=== PATIENT | male | born 1990 | race African-American/Black ===

== ENCOUNTER 2016-10-09 16:37 | Emergency (ER) | payer SELFPAY ==
[2016-10-09] MEDS ORDERED: NORMAL SALINE 1000 ML 1,000 ML IV PRN (17:20)
[2016-10-09] MEDS ORDERED: DIPHENHYDRAMINE HCL 50 MG/ML VIAL IV ONE (17:20)
[2016-10-09] MEDS ORDERED: METOCLOPRAMIDE HCL INJ/PF 10 MG/2 ML SDV IV ONE (17:20)
--- NOTE | 2016-10-09 17:23 | ER Document Report ---
ED Medical Screen (RME) - General Chief Complaint: Abdominal Pain Stated Complaint: ABDOMINAL PAIN Time Seen by Provider: 10/09/16 17:20 Mode of Arrival: Ambulatory Information source: Patient Notes: 25-year-old man who presents with nausea, vomiting and upper abdominal pain. Patient states that the symptoms started this morning. He denies blood in the vomitus or black, tarry stools. Past medical history: None Allergies: None Past surgical history: Back surgery 1 month ago TRAVEL OUTSIDE OF THE [place] IN LAST 30 DAYS: No - Related Data Allergies/Adverse Reactions: No Known Allergies Allergy (Verified 10/09/16 16:47) Past Medical History Renal/ Medical History: Denies: Hx Peritoneal Dialysis Physical Exam - Vital signs Vitals: Temp Pulse Resp BP Pulse Ox 98.3 F 76 14 146/81 H 96 10/09/16 16:47 10/09/16 16:47 10/09/16 16:47 10/09/16 16:47 10/09/16 16:47 Course - Vital Signs Vital signs: Temp Pulse Resp BP Pulse Ox 98.3 F 76 14 146/81 H 96 10/09/16 16:47 10/09/16 16:47 10/09/16 16:47 10/09/16 16:47 10/09/16 16:47
[2016-10-09] MEDS ORDERED: MAG HYDROX/AL HYDROX/SIMETH SUSP 30 ML UDCUP PO ONE (18:22)
--- NOTE | 2016-10-09 18:34 | RADIOLOGY REPORT (SQ) ---
EXAM DESCRIPTION: U/S ABDOMEN LIMITED W/O DOP COMPLETED DATE/TIME: 10/09/2016 6:20 pm REASON FOR STUDY: upper abdominal pain COMPARISON: None. TECHNIQUE: Dynamic and static grayscale images acquired of the abdomen and recorded on PACS. Additio nal selected color Doppler and spectral images recorded. LIMITATIONS: None. FINDINGS: PANCREAS: No masses. Visualized pancreatic duct normal caliber. LIVER: No masses. Echotexture normal. LIVER VASCULATURE: Normal directional flow of the main portal vein and hepatic veins. GALLBLADDER: No stones. Normal wall thickness. No pericholecystic fluid. ULTRASOUND-DETECTED REYES'S SIGN: Negative. INTRAHEPATIC DUCTS AND COMMON DUCT: CBD and intrahepatic ducts normal caliber. No filling defects. INFERIOR VENA CAVA: Normal flow. AORTA: No aneurysm. RIGHT KIDNEY: Normal size. Normal echogenicity. No solid or suspicious masses. No hydronephrosis. No calcifications. PERITONEAL AND RIGHT PLEURAL SPACE: No ascites or effusions. OTHER: No other significant findings. IMPRESSION: NORMAL RIGHT UPPER QUADRANT ULTRASOUND. TECHNICAL DOCUMENTATION: JOB ID: [id number] [employer]- All Rights Reserved
--- NOTE | 2016-10-09 18:40 | ER Document Report ---
ED General - General Chief Complaint: Abdominal Pain Stated Complaint: ABDOMINAL PAIN Time Seen by Provider: 10/09/16 17:20 Mode of Arrival: Ambulatory Notes: 25-year-old male with a history of gastritis presents with 1 day of upper abdominal pain burning radiating to the throat "like something is trying to crawl up out of me." Associated with nausea and vomiting. Not a heavy drinker does not take NSAIDs. Does not take acid suppression. He states that he did take a Midol, but that did not help. Shortness of breath or pleuritic component , hematemesis. No diarrhea. No foreign travel. TRAVEL OUTSIDE OF THE [place] IN LAST 30 DAYS: No - Related Data Allergies/Adverse Reactions: No Known Allergies Allergy (Verified 10/09/16 16:47) Past Medical History - General Information source: Patient - Alcohol use. Infrequent. - Social History Smoking Status: Current Every Day Smoker Family History: None Patient has suicidal ideation: No Patient has homicidal ideation: No Renal/ Medical History: Denies: Hx Peritoneal Dialysis Review of Systems - Review of Systems Notes: REVIEW OF SYSTEMS GEN: Denies fever, chills, weight loss ENT: Denies sore throat, nasal discharge, ear pain EYES: Denies blurry vision, eye pain, discharge CV: Denies chest pain, palpitations, edema RESP: Denies cough, shortness of breath, wheezing GI: Abdominal pain and nausea MSK: Denies joint pain/swelling, edema, SKIN: Denies rash, skin lesions LYMPH: Denies swollen glands/lymph nodes NEURO: Denies headache, focal weakness or numbness, dizziness PSYCH: Denies depression, suicidal or homicidal ideation PHYSICAL EXAMINATION General: No acute distress, well-nourished Head: Atraumatic, normocephalic ENT: Mouth normal, oropharynx moist, no exudates or tonsillar enlargement Eyes: Conjunctiva normal, pupils equal, lids normal Neck: No JVD, supple, no guarding CVS: Normal rate, regular rhythm, no murmurs Resp: No resp distress, equal and normal breath sounds bilaterally GI: Nondistended, soft, no tenderness to palpation, no rebound or guarding Ext: No deformities, no edema, normal range of motion in upper and lower ext Back: No CVA or midline TTP Skin: No rash, warm Lymphatic: No lymphadeopathy noted Neuro: Awake, alert. Face symmetric. GCS 15. Physical Exam - Vital signs Vitals: Temp Pulse Resp BP Pulse Ox 98.3 F 76 14 146/81 H 96 10/09/16 16:47 10/09/16 16:47 10/09/16 16:47 10/09/16 16:47 10/09/16 16:47 Course - Re-evaluation Re-evalutation: 10/09/16 18:39 Otherwise healthy 25-year-old male history of gastritis presents with upper abdominal pain signs and symptoms concerning for gastroesophageal reflux versus gastritis. Low suspicion for hepatic or pancreatic disease. Abdominal exam is benign. Vital signs are normal. He already received an ultrasound and labs were ordered before my evaluation. Will rule out gallstones and treat for GERD. Do not think this is any severe abdominal emergency requiring CT at this time given his lack of fever and lack of abdominal tenderness. 10/09/16 19:15 Improved, ultrasound and labs normal. Discharge with proton pump inhibitor. Insert my discharge I have discussed with the patient there likely diagnosis, aftercare plan, follow-up plans and my usual and customary return precautions. They verbalized understanding of this. - Vital Signs Vital signs: Temp Pulse Resp BP Pulse Ox 98.3 F 76 14 146/81 H 96 10/09/16 16:47 10/09/16 16:47 10/09/16 18:40 10/09/16 16:47 10/09/16 16:47 - Laboratory Result Diagrams: 10/09/16 18:40 10/09/16 18:40 Laboratory results interpreted by me: 10/09/16 18:40 MCV 100 H - Diagnostic Test Radiology reviewed: Image reviewed, Reports reviewed Discharge - Discharge Clinical Impression: Gastritis Qualifiers: Gastritis type: unspecified gastritis Chronicity: acute Gastritis bleeding: without bleeding Qualified Code(s): K29.00 - Acute gastritis without bleeding Condition: Good Disposition: HOME, SELF-CARE Instructions: Abdominal Pain ([facility]) Additional Instructions: Abdominal pain is likely caused by a highly acidic environment in your stomach, skull gastritis plus gastroesophageal reflux. Please avoid fatty foods spicy food alcohol and anti-inflammatory drugs like ibuprofen Motrin naproxen and Aleve. Please take medicine I am prescribing you in follow-up with your primary care doctor in 3 days. Please return to the ER if you vomit blood have dark tarry stools or have bright red blood from her bottom. Prescriptions: Pantoprazole Sodium [Protonix] 40 mg PO BID #60 tablet.
[2016-10-09 18:50] LABS: ABSOLUTE BASOPHILS # (AUTO) 0.1 10^3/uL (0.0-0.2); ABSOLUTE LYMPHOCYTES (AUTO) 1.7 10^3/uL (0.5-4.7); ABSOLUTE MONOCYTES (AUTO) 0.6 10^3/uL (0.1-1.4); ABSOLUTE NEUT (AUTO) 2.4 10^3/uL (1.7-8.2); BASOPHILS % (AUTO) 1.1 % (0-2); EOSINOPHILS % (AUTO) 0.9 % (0-6); HEMATOCRIT 44.2 % (37.9-51.0); HEMOGLOBIN 14.8 g/dL (13.5-17.0); HGB HCT DIFFERENCE 0.2; MEAN CORPUSCULAR HEMOGLOBIN 33.4 pg (27.0-33.4); MEAN CORPUSCULAR HGB CONC 33.5 g/dL (32.0-36.0); MEAN CORPUSCULAR VOLUME 100 fl (80-97); MONOCYTES % (AUTO) 12.6 % (3-13); RED BLOOD COUNT 4.43 10^6/uL (4.35-5.55); RED CELL DISTRIBUTION WIDTH 13.4 % (11.5-14.0); SEGMENTED NEUTROPHILS % (AUTO) 50.4 % (42-78); WHITE BLOOD COUNT 4.8 10^3/uL (4.0-10.5)
[2016-10-09] MEDS ORDERED: FAMOTIDINE 20 MG TABLET PO ONE (18:50)
[2016-10-09 19:10] LABS: ALANINE AMINOTRANSFERASE 35 U/L (21-72); ALBUMIN 4.5 g/dL (3.5-5.0); ALKALINE PHOSPHATASE 75 U/L (38-126); ANION GAP 12 (5-19); ASPARTATE AMINO TRANSFERASE 20 U/L (17-59); BILIRUBIN,DIRECT 0.2 mg/dL (0.0-0.4); BILIRUBIN,TOTAL 1.2 mg/dL (0.2-1.3); BLOOD UREA NITROGEN 12 mg/dL (7-20); CALCIUM 9.8 mg/dL (8.4-10.2); CARBON DIOXIDE 24 mmol/L (22-30); CHLORIDE 104 mmol/L (98-107); GLUCOSE 107 mg/dL (75-110); LIPASE 40.9 U/L (23-300); POTASSIUM 3.7 mmol/L (3.6-5.0); SODIUM 139.5 mmol/L (137-145); TOTAL PROTEIN 7.6 g/dL (6.3-8.2)
[2016-10-09 19:33] VITALS: BP 138/79
== END 2016-10-09 19:35 | disposition home or self-care (01) ==
LOC: ER 16:37
DX: K29.00 Acute gastritis without bleeding (principal); R10.10 Upper abdominal pain, unspecified; R11.2 Nausea with vomiting, unspecified; F17.200 Nicotine dependence, unspecified, uncomplicated
CPT/HCPCS: 99284; 96361; 96374; 36415; 83690; 85025; 80053; 76705; J2765; J7030

== ENCOUNTER 2017-01-17 15:58 | Emergency (ER) | payer SELFPAY ==
--- NOTE | 2017-01-17 18:06 | ER Document Report ---
ED Skin Rash/Insect Bite/Abscs - General Chief Complaint: Skin Problem Stated Complaint: SKIN IRRITATION Mode of Arrival: Ambulatory Information source: Patient TRAVEL OUTSIDE OF THE [place] IN LAST 30 DAYS: No - HPI Patient complains to provider of: Skin rash/lesion Onset: Last week Onset/Duration: Gradual Quality of pain: Burning Severity: Moderate Skin Character: Rash Quality of rash: Itchy, Burning Identify cause: Yes Similar symptoms previously: Yes Notes: Patient arrives with complaints of rash. Patient has a history of eczema. He uses Eucerin and Aquaphor. States that he uses and asked body wash. States for the last week he has had worsening symptoms to the bilateral arms posterior legs and posterior neck. He denies any fever. He states that the rash is itchy. He states that it fierro when he scratches it open. No drainage. He denies any nausea, vomiting, diarrhea. No difficulty breathing or swallowing. He is no history of new soaps detergents lotions or medications. He has no other complaints at this time. - Related Data Allergies/Adverse Reactions: No Known Allergies Allergy (Verified 01/17/17 16:02) Past Medical History - Social History Smoking Status: Unknown if Ever Smoked Family History: None Patient has suicidal ideation: No Renal/ Medical History: Denies: Hx Peritoneal Dialysis - Immunizations Hx Diphtheria, Pertussis, Tetanus Vaccination: No Review of Systems - Review of Systems -: Yes All other systems reviewed and negative Physical Exam - Vital signs Vitals: Temp Pulse Resp BP Pulse Ox 98.5 F 58 L 16 151/97 H 96 01/17/17 16:03 01/17/17 16:03 01/17/17 16:03 01/17/17 16:03 01/17/17 16:03 - Notes Notes: GENERAL: alert, cooperative, nontoxic, no distress. HEAD: normocephalic, atraumatic EYES: conjunctiva pink without discharge, no external redness or swelling. EARS: no external swelling, no external redness NOSE: atraumatic, no external swelling MOUTH/THROAT: mucous membranes moist and pink NECK: soft, supple, full range of motion, no meningismus. CHEST: no distress, lungs clear and equal throughout. No wheezing, rales, rhonchi. CARDIAC: regular rate and rhythm, no murmur, normal capillary refill, normal pulses. BACK: full range of motion, no CVA tenderness. EXTREMITIES: full range of motion of all extremities. No redness, no swelling. NEURO: alert and oriented 3, no focal deficits, full range of motion of all extremities. PYSCH: appropriate mood, affect. Patient is cooperative. SKIN: pink, warm, dry, thickened skin to the bilateral antecubital areas, bilateral popliteal areas, posterior neck, consistent with eczema. No surrounding redness. No drainage. No abscess. No petechiae or vesicles. Slight decreased pigmentation of these areas noted. Course - Re-evaluation Re-evalutation: 01/17/17 18:04 The patient is nontoxic appearing with stable vitals. The patient has a history of eczema. He has a rash consistent with an atopic dermatitis flare. I will discharge the patient home with a moderate potency steroid cream. He was instructed to keep the skin moist with Eucerin and Aquaphor as he has been doing. He was instructed to stop using the ask body wash and to use a sensitive skin soap such as Dove. Instructed to follow-up if not better in 1 week, sooner for increased pain, fever, redness, drainage, any further concerns. The patient is noted to have elevated blood pressure during today's emergency department visit. The patient was informed of this finding. The patient was instructed that this may be related to pre-hypertension and requires further evaluation with a primary care provider. The patient has no hypertensive symptoms at this time. The patient's emergency department workup and current diagnosis were explained to the patient and or family. Follow-up instructions were provided. Medications if prescribed were discussed. Instructions for when to return to the emergency department including specific worrisome symptoms were discussed with the patient and/or family. - Vital Signs Vital signs: Temp Pulse Resp BP Pulse Ox 98.5 F 58 L 16 151/97 H 96 01/17/17 16:03 01/17/17 16:03 01/17/17 16:03 01/17/17 16:03 01/17/17 16:03 Discharge - Discharge Clinical Impression: Atopic dermatitis Qualifiers: Atopic dermatitis type: flexural Qualified Code(s): L20.89 - Other atopic dermatitis Condition: Stable Disposition: HOME, SELF-CARE Instructions: Atopic Dermatitis (Eczema) ([facility]) Additional Instructions: Take medications as prescribed. Continue using the Aquaphor and Eucerin for moisture. Stop using the Atarax body wash and use of sensitive skin soap such as Dove. Follow-up if not better in 1 week, sooner for increased pain, fever, redness, drainage, any further concerns. Your blood pressure was elevated during today's visit. Have this rechecked with your doctor. Prescriptions: Hydroxyzine HCl [Atarax 25 mg Tablet] 1 - 2 tab PO QID #25 tablet Triamcinolone Acetonide 1 applic TP BID #90 g Forms: Elevated Blood Pressure Referrals: [facility] [Provider Group] - Follow up as needed
[2017-01-17 18:33] VITALS: BP 139/79
== END 2017-01-17 18:30 | disposition home or self-care (01) ==
LOC: ER 15:58
DX: L20.89 Other atopic dermatitis (principal)
CPT/HCPCS: 99282

== ENCOUNTER 2017-08-24 12:09 | Emergency (ER) | payer SELFPAY ==
--- NOTE | 2017-08-24 13:18 | ER Document Report ---
ED General - General Chief Complaint: STD Exposure Stated Complaint: STD CHECK Time Seen by Provider: 08/24/17 13:18 Mode of Arrival: Ambulatory Information source: Patient TRAVEL OUTSIDE OF THE [place] IN LAST 30 DAYS: No - HPI Notes: 26-year-old male presents to emergency room today for complaints of having pain with urination as well as penile drainage 1 day. Reports he has recently had unprotected sexual intercourse with a female. Denies any lesions on penis. Denies any fevers or chills. Denies any testicular pain or rectal pain. Patient states he has been the same partner for a couple weeks. Pain is here in 10, burning. Worse with time, nothing makes better. Has not tried over-the- counter treatment for this. Denies fevers, chills, chest pain,palpitations, shortness of breath, dyspnea, nausea, vomiting, diarrhea, abdominal pain, hematuria,blurred vision, double vision, loss of vision, speech changes, LH, dizziness, syncope, headaches, wheezing, ST, URI, neck pain, weakness, bowel or bladder dysfunction, saddle anesthesia, numbness or tingling in bilateral upper or lower extremities equally, muscle paralysis, weakness in bilateral upper or lower extremities equally or rash. Denies IV drug use. - Related Data Allergies/Adverse Reactions: No Known Allergies Allergy (Verified 08/24/17 12:10) Past Medical History - General Information source: Patient - Social History Smoking Status: Unknown if Ever Smoked Family History: None, Reviewed & Not Pertinent Renal/ Medical History: Denies: Hx Peritoneal Dialysis - Immunizations Hx Diphtheria, Pertussis, Tetanus Vaccination: No Review of Systems - Review of Systems Constitutional: No symptoms reported EENT: No symptoms reported Cardiovascular: No symptoms reported Respiratory: No symptoms reported Gastrointestinal: No symptoms reported Genitourinary: No symptoms reported Male Genitourinary: See HPI Musculoskeletal: No symptoms reported Skin: No symptoms reported Hematologic/Lymphatic: No symptoms reported Neurological/Psychological: No symptoms reported Physical Exam - Vital signs Vitals: Pulse Resp BP Pulse Ox 92 16 132/74 H 96 08/24/17 12:24 08/24/17 12:24 08/24/17 12:24 08/24/17 12:24 - Notes Notes: PHYSICAL EXAMINATION: GENERAL: Well-appearing, well-nourished and in no acute distress. HEAD: Atraumatic, normocephalic. EYES: Pupils equal round and reactive to light, extraocular movements intact, sclera anicteric, conjunctiva are normal. ENT: Nares patent, oropharynx clear without exudates. Moist mucous membranes. NECK: Normal range of motion, supple without lymphadenopathy LUNGS: Breath sounds clear to auscultation bilaterally and equal. No wheezes rales or rhonchi. HEART: Regular rate and rhythm without murmurs ABDOMEN: Soft, nontender, nondistended abdomen. No guarding, no rebound. No masses appreciated. gu: no lesion noted or drainage on inspection of penile shaft. no lesions noted. testicles descended. Musculoskeletal: Normal range of motion, no pitting or edema. No cyanosis. NEUROLOGICAL: Cranial nerves grossly intact. Normal speech, normal gait. Normal sensory, motor exams PSYCH: Normal mood, normal affect. SKIN: Warm, Dry, normal turgor, no rashes or lesions noted. Course - Re-evaluation Re-evalutation: 08/24/17 14:20 Patient is afebrile, vitals stable and in no distress. Discussed with patient the importance of practicing safe sex by using barrier method such as condoms. Discussed we are not testing him for blood-borne pathogens such as HIV or hepatitis C. he will required when his primary care provider without department for further testing. We are treating him for chlamydia and gonorrhea today with 1 g of azithromycin and 250 of Rocephin. Discussed the patient to not engage in any sexual intercourse for at least 10 days and that his partner needs to get tested and treated she had sexual intercourse for 10 days as well. I have reevaluated this patient multiple times and no significant life threatening changes, no signs of toxicity, sepsis or peritonitis are noted. The patient and I have discussed the diagnosis and risks, and we agree with discharging home and close follow-up. We also discussed returning to the Emergency Department immediately if new or worsening symptoms occur with the understanding that symptoms and presentations can change. At this time will discharge with return precautions and follow-up recommendations. Verbal discharge instructions given a the bedside and opportunity for questions given. We have discussed the symptoms which are most concerning (e.g., saddle anesthesia, urinary or bowel incontinence or retention, changing or worsening pain) that necessitate immediate return. Medication warnings reviewed. Patient is in agreement with this plan and has verbalized understanding of return precautions and the need for primary care follow-up in the next 24-72 hours. Patient verbalized understanding of plan of care and agree with plan of care. - Vital Signs Vital signs: Temp Pulse Resp BP Pulse Ox 98.2 F 57 L 16 114/69 99 08/24/17 14:34 08/24/17 14:34 08/24/17 14:34 08/24/17 14:34 08/24/17 14:34 - Laboratory Laboratory results interpreted by me: 08/24/17 14:00 Urine Protein 30 H Urine Urobilinogen 4.0 H Ur Leukocyte Esterase LARGE H Discharge - Discharge Clinical Impression: STD exposure, Drainage from penis, Concern about STD in male without diagnosis Condition: Good Disposition: HOME, SELF-CARE Additional Instructions: Gonorrhea You have been diagnosed with gonorrhea. In men, this germ infects the urethra (and sometimes the throat). Men usually have drainage from the penis and pain with urination. In women, the germ infects the vagina and fallopian tubes. There may be discharge and pelvic pain. Some women have no symptoms at all. The infection can do permanent damage to the tubes and ovaries. It should be taken very seriously. Treatment is antibiotics. It's important that you receive all recommended medication. Use condoms to prevent spread of the infection. Because this infection is spread sexually, your sexual partner must be checked before resuming sexual relations. If a culture shows gonorrhea germs, it must be reported to the health department. Call the doctor or return at once if you develop increasing fever, rash, joint swelling, severe pelvic pain, vaginal bleeding (other than your period), or problems with your bladder or bowels. Chlamydia You have a chlamydia infection. Chlamydia is a germ that grows inside the cells of the mucous membranes. It often infects the eyes, urethra, and fallopian tubes. It can cause chronic pain and scar tissue if untreated. Antibiotics are used to treat chlamydia. It's important to take all the medicine even if there are no symptoms. Use condoms to prevent spread of the infection. Because this infection can spread by sexual contact, it's important that your sexual partner be checked before resuming sexual relations. A positive test for chlamydia has to be reported to the health department. Call the doctor or return at once if you develop increasing fever, rash, severe pelvic pain, vaginal bleeding (other than your period), or problems with your bladder or bowels. you were treated here today for chlamydia and gonorrhea with 1 g of azithromycin and turned 50 mg of Rocephin IM. you need to use protection every time you have sex. Failure to do so can result in transmission of infections. You have been treated for an sexually transmitted infection (STI) today. All of your partners should be tested and treated as they are also likely to be infected. Follow-up with your primary care provider at the health department for blood work to check for sexually transmitted blood-borne pathogens such as HIV, hepatitis C, etc. Please return if you develop abdominal pain, fever, persistent vomiting, or any other symptoms that are concerning to you. Return immediately for any new or worsening symptoms. Follow up with primary care provider, call tomorrow to make followup appointment. Referrals: SACHIN TRACEY MD [COMMUNITY BASED STAFF] - Follow up in 1 week [facility] [NO LOCAL MD] - Follow up as needed
[2017-08-24] MEDS ORDERED: AZITHROMYCIN 250 MG TABLET PO ONE (14:09)
[2017-08-24] MEDS ORDERED: CEFTRIAXONE INJ 250 MG VIAL IM ONE (14:34)
[2017-08-24] MEDS ORDERED: LIDOCAINE 1% INJ-PF (10 MG/ML) 30 ML SDV INJ ONE (14:34)
[2017-08-24 14:42] LABS: APPEARANCE,URINE SLIGHTLY-CLOUDY; BILIRUBIN,URINE NEGATIVE (NEGATIVE); COLOR,URINE AMBER; GLUCOSE, URINE NEGATIVE (NEGATIVE); KETONES,URINE NEGATIVE (NEGATIVE); LEUKOCYTE ESTERASE,URINE LARGE (NEGATIVE); NITRITE,URINE NEGATIVE (NEGATIVE); PROTEIN,URINE 30 mg/dL (NEGATIVE); URINE SPECIFIC GRAVITY 1.034
[2017-08-24 14:48] VITALS: BP 114/69
[2017-08-24 16:37] LABS: CHLAM PCR DETECTED (NOT DETECT); GON PCR DETECTED (NOT DETECT)
== END 2017-08-24 15:01 | disposition home or self-care (01) ==
LOC: ER 12:09
DX: Z20.2 Contact with and (suspected) exposure to infections with a predominantly sexual mode of transmission (principal); R36.9 Urethral discharge, unspecified; R30.9 Painful micturition, unspecified
CPT/HCPCS: 99283; 96372; 81001; 87491; 87591; J3490; J0696

== ENCOUNTER 2018-09-15 19:15 | Emergency (ER) | payer SELFPAY ==
[2018-09-15] MEDS ORDERED: ONDANSETRON 4 MG TAB.RAPDIS PO ONE (19:42)
--- NOTE | 2018-09-15 19:44 | ER Document Report ---
ED Medical Screen (RME) - General Chief Complaint: Abdominal Pain Stated Complaint: STOMACH PAINS Time Seen by Provider: 09/15/18 19:38 Mode of Arrival: Ambulatory Information source: Patient Notes: 27-year-old male presented to ED for complaint of upper abdominal pain across left and right side. States it started yesterday. He states he has had nausea and vomiting and has vomited 5 times today. Patient states he feels very dehydrated. Patient is alert oriented respirations regular and unlabored speaking in full sentences walks with even steady gait. Patient does have active bowel sounds and does have tenderness to the upper abdomen. I have greeted and performed a rapid initial assessment of this patient. A comprehensive ED assessment and evaluation of the patient, analysis of test results and completion of medical decision making process will be conducted by an additional ED providers. Dictation of this chart was performed using voice recognition software; therefore, there may be some unintended grammatical errors. TRAVEL OUTSIDE OF THE [place] IN LAST 30 DAYS: No - Related Data Allergies/Adverse Reactions: No Known Allergies Allergy (Verified 09/15/18 19:17) Past Medical History Renal/ Medical History: Denies: Hx Peritoneal Dialysis - Immunizations Hx Diphtheria, Pertussis, Tetanus Vaccination: No History of Influenza Vaccine for 01/2017 - 06/2017 Season: No Physical Exam - Vital signs Vitals: Temp Pulse Resp BP Pulse Ox 98.6 F 107 H 16 147/88 H 97 09/15/18 19:20 09/15/18 19:20 09/15/18 19:20 09/15/18 19:20 09/15/18 19:20 Course - Vital Signs Vital signs: Temp Pulse Resp BP Pulse Ox 98.6 F 107 H 16 147/88 H 97 09/15/18 19:20 09/15/18 19:20 09/15/18 19:20 09/15/18 19:20 09/15/18 19:20
--- NOTE | 2018-09-15 20:31 | RADIOLOGY REPORT (SQ) ---
EXAM DESCRIPTION: US ABDOMEN COMPLETED DATE/TME: 09/15/2018 19:41 CLINICAL HISTORY: upper abdominal pain COMPARISON: None. FINDINGS: Visualized portion of the pancreas and hepatic parenchyma are within normal limits. Aorta is of normal caliber and tapering. The right kidney measured 10.3 x 4.1 x 4.6 cm. Echotexture of the right kidney is within normal limits. There are no gallstones, gallbladder wall thickening or pericholecystic fluid collection. The common bile duct measured 2.6 mm which is within normal limits. Spleen measured 9.5 cm in length and is of homogeneous echotexture. Left kidney measured 9.2 x 5.9 x 4.4 cm. The echotexture of both kidneys within normal limits. There is no hydronephrosis. There is no free fluid in the abdomen. IMPRESSION: Normal exam.
[2018-09-15 21:15] LABS: ABSOLUTE EOSINOPHILS # (AUTO) 0.1 10^3/uL (0.0-0.6); ABSOLUTE LYMPHOCYTES (AUTO) 1.6 10^3/uL (0.5-4.7); ABSOLUTE MONOCYTES (AUTO) 0.4 10^3/uL (0.1-1.4); ABSOLUTE NEUT (AUTO) 2.7 10^3/uL (1.7-8.2); BASOPHILS % (AUTO) 0.7 % (0-2); EOSINOPHILS % (AUTO) 2.4 % (0-6); HEMATOCRIT 47.3 % (37.9-51.0); HEMOGLOBIN 16.2 g/dL (13.5-17.0); MEAN CORPUSCULAR HEMOGLOBIN 34.2 pg (27.0-33.4); MEAN CORPUSCULAR HGB CONC 34.3 g/dL (32.0-36.0); MEAN CORPUSCULAR VOLUME 100 fl (80-97); MONOCYTES % (AUTO) 8.8 % (3-13); PLATELET COUNT 305 10^3/uL (150-450); RED BLOOD COUNT 4.74 10^6/uL (4.35-5.55); SEGMENTED NEUTROPHILS % (AUTO) 55.1 % (42-78); TOTAL CELLS COUNTED % (AUTO) 100 %; WHITE BLOOD COUNT 4.9 10^3/uL (4.0-10.5)
[2018-09-15 21:34] LABS: ALANINE AMINOTRANSFERASE 30 U/L (21-72); ALBUMIN 4.9 g/dL (3.5-5.0); ALKALINE PHOSPHATASE 78 U/L (38-126); ANION GAP 12 (5-19); ASPARTATE AMINO TRANSFERASE 33 U/L (17-59); BILIRUBIN,DIRECT 0.3 mg/dL (0.0-0.4); BLOOD UREA NITROGEN 11 mg/dL (7-20); CALCIUM 11.1 mg/dL (8.4-10.2); CARBON DIOXIDE 26 mmol/L (22-30); CHLORIDE 102 mmol/L (98-107); GLUCOSE 88 mg/dL (75-110); LIPASE 41.5 U/L (23-300); POTASSIUM 4.4 mmol/L (3.6-5.0); SODIUM 140.4 mmol/L (137-145); TOTAL PROTEIN 8.3 g/dL (6.3-8.2)
[2018-09-15 22:37] LABS: APPEARANCE,URINE SLIGHTLY-CLOUDY; BILIRUBIN,URINE SMALL (NEGATIVE); COLOR,URINE AMBER; GLUCOSE, URINE NEGATIVE (NEGATIVE); KETONES,URINE TRACE mg/dL (NEGATIVE); LEUKOCYTE ESTERASE,URINE SMALL (NEGATIVE); NITRITE,URINE NEGATIVE (NEGATIVE); PROTEIN,URINE 30 mg/dL (NEGATIVE); URINE SPECIFIC GRAVITY 1.033
[2018-09-15 22:48] LABS: URINE BARBITURATES SCREEN NEGATIVE; URINE BENZODIAZEPINES SCREEN NEGATIVE; URINE COCAINE SCREEN NEGATIVE; URINE MARIJUANA (THC) SCREEN UNCONFIRMED POSITIVE; URINE METHADONE SCREEN NEGATIVE; URINE PHENCYCLIDINE SCREEN NEGATIVE
[2018-09-15 22:57] LABS: URINE AMPHETAMINES SCREEN NEGATIVE
[2018-09-15] MEDS ORDERED: RINGERS SOLUTION,LACTATED 1,000 ML IV ONE (22:57)
[2018-09-15] MEDS ORDERED: HALOPERIDOL LACTATE INJ 5 MG/1 ML VIAL IV ONE (22:57)
--- NOTE | 2018-09-15 23:07 | ER Document Report ---
ED General - General Chief Complaint: Abdominal Pain Stated Complaint: STOMACH PAINS Time Seen by Provider: 09/15/18 19:38 Mode of Arrival: Ambulatory Notes: Patient is a 27-year-old male without chronic medical problems, no prior abdominal surgical history, presents with complaints of diffuse abdominal pain with associated nausea and vomiting. States that his symptoms started earlier today relatively abruptly and have been ongoing since that time. Describes the pain is up to him abdomen is being an aching, throbbing, constant pain mostly localized to the epigastrium. States that he has been having intractable vomiting in association with the pain but the vomiting did start first. Symptoms are regarded as severe, constant, no obvious exacerbating factor. States he did take a hot shower earlier and it did seem to relieve his symptoms. Denies ever having similar symptoms in the past. Has not seen his primary physician regarding today's concerns. Denies fever or constitutional symptoms. TRAVEL OUTSIDE OF THE [place] IN LAST 30 DAYS: No - Related Data Allergies/Adverse Reactions: No Known Allergies Allergy (Verified 09/15/18 19:43) Past Medical History - General Information source: Patient - Social History Smoking Status: Current Every Day Smoker Frequency of alcohol use: Occasional Drug Abuse: Marijuana Lives with: Spouse/Significant other Family History: Reviewed & Not Pertinent Patient has suicidal ideation: No Patient has homicidal ideation: No Renal/ Medical History: Denies: Hx Peritoneal Dialysis - Immunizations Hx Diphtheria, Pertussis, Tetanus Vaccination: No Review of Systems - Review of Systems Notes: Constitutional: Negative for fever. HENT: Negative for sore throat. Eyes: Negative for visual changes. Cardiovascular: Negative for chest pain. Respiratory: Negative for shortness of breath. Gastrointestinal: Positive for abdominal pain and vomiting Genitourinary: Negative for dysuria. Musculoskeletal: Negative for back pain. Skin: Negative for rash. Neurological: Negative for headaches, weakness or numbness. 10 point ROS negative except as marked above and in HPI. Physical Exam - Vital signs Vitals: Temp Pulse Resp BP Pulse Ox 98.6 F 107 H 16 147/88 H 97 09/15/18 19:20 09/15/18 19:20 09/15/18 19:20 09/15/18 19:20 09/15/18 19:20 Interpretation: Tachycardic Notes: PHYSICAL EXAMINATION: GENERAL: In around the room, in no obvious distress HEAD: Atraumatic, normocephalic. EYES: Pupils equal round and reactive to light, extraocular movements intact, sclera anicteric, conjunctiva are normal. ENT: nares patent, oropharynx clear without exudates. Moderately dry mucous membranes. NECK: Normal range of motion, supple without lymphadenopathy LUNGS: Breath sounds clear to auscultation bilaterally and equal. No wheezes rales or rhonchi. HEART: Regular rate and rhythm without murmurs ABDOMEN: Soft, nontender, normoactive bowel sounds. No guarding, no rebound. No masses appreciated. EXTREMITIES: Normal range of motion, no pitting or edema. No cyanosis. NEUROLOGICAL: No focal neurological deficits. Moves all extremities spontaneously and on command. PSYCH: High energy, unusual activity pattern for location SKIN: Warm, Dry, normal turgor, no rashes or lesions noted. Course - Re-evaluation Re-evalutation: 09/15/18 23:04 Patient presents jumping up and down, almost jogging in place when entering to the room complaining of upper abdominal pain with associated nausea and vomitin g. The patient is bouncing vigorously about the room like take my history stating that this helps his discomfort. The patient is able to lay down for an abdominal exam eventually and has no focal abdominal tenderness, rebound or guarding. Has had associated nausea and vomiting. Labs and right upper quadrant ultrasound are unremarkable. Clinical history not consistent with biliary pathology, pancreatitis, bowel obstruction or perforation. Abdominal exam, vitals and history are otherwise very reassuring. Patient's rapid movements about the room are not consistent with renal colic. Patient reports that his symptoms are much relieved by hot showers, admits to heavy daily marijuana use and I question whether or not this could be a presentation of cannabis induced cyclical abdominal pain and cyclical vomiting. Has been treated with IV haloperidol and IV fluids with improvement of symptoms. Do not feel CT imaging the abdomen and pelvis is indicated at this time based on reassuring exam and history. Have advised cessation of marijuana use. At this time will discharge with return precautions and follow-up recommendations. Verbal discharge instructions given a the bedside and opportunity for questions given. Medication warnings reviewed. Patient is in agreement with this plan and has verbalized understanding of return precautions and the need for primary care follow-up in the next 24-72 hours. - Vital Signs Vital signs: Temp Pulse Resp BP Pulse Ox 98.2 F 88 18 130/78 H 98 09/16/18 00:38 09/16/18 00:38 09/16/18 00:38 09/16/18 00:38 09/16/18 00:38 - Laboratory Result Diagrams: 09/15/18 20:40 09/15/18 20:40 Laboratory results interpreted by me: 09/15/18 09/15/18 09/15/18 20:40 20:40 22:13 MCV 100 H MCH 34.2 H Calcium 11.1 H Total Protein 8.3 H Urine Protein 30 H Urine Ketones TRACE H Urine Bilirubin SMALL H Urine Urobilinogen 4.0 H Ur Leukocyte Esterase SMALL H Discharge - Discharge Clinical Impression: Upper abdominal pain, Marijuana use Nausea and vomiting Qualifiers: Vomiting type: unspecified Vomiting Intractability: non-intractable Qualified Code(s): R11.2 - Nausea with vomiting, unspecified Condition: Good Disposition: HOME, SELF-CARE Additional Instructions: Your signs and symptoms today are most consistent with marijuana induced hyperemesis syndrome also known as cannabinoid hyperemesis syndrome. This syndrome typically occurs in people who have smoked marijuana for many years without any symptoms of any kind and can start abruptly. Your symptoms will in general improve if you take a hot shower but ultimately the only cure to this illness is to discontinue the use of marijuana. While marijuana in of itself is not a dangerous drug, once you have developed this syndrome you typically will have recurrence of your symptoms anytime you smoke. If you do have recurrence of these symptoms, you may apply topical capsaicin cream to your abdomen which can be purchased [id number]. Return to the emergency department if you have vomiting that you cannot stop, you pass out, or you have any other symptoms that are worrisome to you. Forms: Return to Work
[2018-09-16 00:39] VITALS: BP 130/78
== END 2018-09-16 00:39 | disposition home or self-care (01) ==
LOC: ER 19:15
DX: R10.13 Epigastric pain (principal); R11.2 Nausea with vomiting, unspecified; F17.200 Nicotine dependence, unspecified, uncomplicated; F12.10 Cannabis abuse, uncomplicated
CPT/HCPCS: 99284; 96361; 96374; 36415; 83690; 85025; 80053; 81001; 80307; 76700; J1630; J7120

== ENCOUNTER 2018-09-22 00:22 | Emergency (ER) | payer SELFPAY ==
[2018-09-22 01:42] VITALS: BP 148/95
[2018-09-22 03:47] LABS: ABSOLUTE LYMPHOCYTES (AUTO) 0.8 10^3/uL (0.5-4.7); ABSOLUTE MONOCYTES (AUTO) 0.7 10^3/uL (0.1-1.4); ABSOLUTE NEUT (AUTO) 8.9 10^3/uL (1.7-8.2); BASOPHILS % (AUTO) 0.2 % (0-2); HEMATOCRIT 43.6 % (37.9-51.0); HEMOGLOBIN 14.9 g/dL (13.5-17.0); LYMPHOCYTES % (AUTO) 7.7 % (13-45); MEAN CORPUSCULAR HEMOGLOBIN 34.3 pg (27.0-33.4); MEAN CORPUSCULAR HGB CONC 34.3 g/dL (32.0-36.0); MEAN CORPUSCULAR VOLUME 100 fl (80-97); MONOCYTES % (AUTO) 6.6 % (3-13); PLATELET COUNT 301 10^3/uL (150-450); RED BLOOD COUNT 4.35 10^6/uL (4.35-5.55); RED CELL DISTRIBUTION WIDTH 13.9 % (11.5-14.0); SEGMENTED NEUTROPHILS % (AUTO) 85.5 % (42-78); TOTAL CELLS COUNTED % (AUTO) 100 %; WHITE BLOOD COUNT 10.4 10^3/uL (4.0-10.5)
--- NOTE | 2018-09-22 04:00 | ER Document Report ---
ED Medical Screen (RME) - General Chief Complaint: Abdominal Pain Stated Complaint: ABDOMINAL PAIN Time Seen by Provider: 09/22/18 03:56 Notes: Patient is a 27-year-old male without chronic medical problems, no prior abdominal surgical history, presents with complaints of diffuse abdominal pain with associated nausea and vomiting. States that his symptoms started 2 days ago. Describes the pain as being an aching, throbbing, constant pain mostly localized to the epigastrium. States that he has been having intractable vomiting approximately 20 times in association with the pain but the vomiting did start first. Patient has had diarrhea x3. Patient presented is tachycardic to 144 but patient has been constantly jogging around the ER, running in place and has not sat down while waiting. I have greeted and performed a rapid initial assessment of this patient. A comprehensive ED assessment and evaluation of the patient, analysis of test results and completion of medical decision making process will be conducted by an additional ED providers. TRAVEL OUTSIDE OF THE [place] IN LAST 30 DAYS: No - Related Data Allergies/Adverse Reactions: No Known Allergies Allergy (Verified 09/15/18 19:43) Past Medical History Renal/ Medical History: Denies: Hx Peritoneal Dialysis - Immunizations Hx Diphtheria, Pertussis, Tetanus Vaccination: No History of Influenza Vaccine for 01/2017 - 06/2017 Season: No Physical Exam - Vital signs Vitals: Temp Pulse Resp BP Pulse Ox 98.9 F 144 H 24 H 148/95 H 96 09/22/18 00:44 09/22/18 00:44 09/22/18 00:44 09/22/18 00:44 09/22/18 00:44 Course - Vital Signs Vital signs: Temp Pulse Resp BP Pulse Ox 98.9 F 144 H 24 H 148/95 H 96 09/22/18 00:44 09/22/18 00:44 09/22/18 00:44 09/22/18 00:44 09/22/18 00:44 - Laboratory Result Diagrams: 09/22/18 03:13 09/22/18 03:13 Laboratory results interpreted by me: 09/22/18 03:13 MCV 100 H MCH 34.3 H Seg Neutrophils % 85.5 H Lymphocytes % 7.7 L Absolute Neutrophils 8.9 H
[2018-09-22] MEDS ORDERED: MAG HYDROX/AL HYDROX/SIMETH SUSP 30 ML UDCUP PO PRN (05:44)
[2018-09-22] MEDS ORDERED: PROMETHAZINE HCL INJ 50 MG/1 ML VIAL IM PRN (05:44)
--- NOTE | 2018-09-22 05:46 | ER Document Report ---
ED General - General Chief Complaint: Abdominal Pain Stated Complaint: ABDOMINAL PAIN Time Seen by Provider: 09/22/18 03:56 Notes: Patient presents with 2 days upper abdominal pain vomiting diarrhea. Decreased oral intake. Moderate. Minimal pain now. I received fluids and medications at triage. Smokes marijuana daily. No fevers. No urinary symptoms. TRAVEL OUTSIDE OF THE [place] IN LAST 30 DAYS: No - Related Data Allergies/Adverse Reactions: No Known Allergies Allergy (Verified 09/15/18 19:43) Past Medical History - Social History Smoking Status: Never Smoker Drug Abuse: Marijuana Family History: Reviewed & Not Pertinent Renal/ Medical History: Denies: Hx Peritoneal Dialysis - Immunizations Hx Diphtheria, Pertussis, Tetanus Vaccination: No Review of Systems - Review of Systems Notes: REVIEW OF SYSTEMS GEN: Denies fever, chills, weight loss ENT: Denies sore throat, nasal discharge, ear pain EYES: Denies blurry vision, eye pain, discharge CV: Denies chest pain, palpitations, edema RESP: Denies cough, shortness of breath, wheezing GI: HPI MSK: Denies joint pain/swelling, edema, SKIN: Denies rash, skin lesions LYMPH: Denies swollen glands/lymph nodes NEURO: Denies headache, focal weakness or numbness, dizziness PSYCH: Denies depression, suicidal or homicidal ideation PHYSICAL EXAMINATION General: No acute distress, well-nourished Head: Atraumatic, normocephalic ENT: Mouth normal, oropharynx moist, no exudates or tonsillar enlargement Eyes: Conjunctiva normal, pupils equal, lids normal Neck: No JVD, supple, no guarding CVS: Normal rate, regular rhythm, no murmurs Resp: No resp distress, equal and normal breath sounds bilaterally GI: Nondistended, soft, no tenderness to palpation, no rebound or guarding Ext: No deformities, no edema, normal range of motion in upper and lower ext Back: No CVA or midline TTP Skin: No rash, warm Lymphatic: No lymphadeopathy noted Neuro: Awake, alert. Face symmetric. GCS 15. Physical Exam - Vital signs Vitals: Temp Pulse Resp BP Pulse Ox 98.9 F 144 H 24 H 148/95 H 96 09/22/18 00:44 09/22/18 00:44 09/22/18 00:44 09/22/18 00:44 09/22/18 00:44 Course - Re-evaluation Re-evalutation: 09/22/18 13:21 Recurrent upper abdominal pain vomiting in setting of a marijuana use likely gastritis or cannabinoid hyperemesis. Labs normal no tenderness. Symptoms resolved after medications and fluids. Repeat exam nontender. Tolerated p.o. No indication for imaging. Discharged in stable condition. Recommended marijuana cessation. I have discussed with the patient there likely diagnosis, aftercare plan, follow-up plans and my usual and customary return precautions. They verbalized understanding of this. - Vital Signs Vital signs: Temp Pulse Resp BP Pulse Ox 98.9 F 144 H 24 H 148/95 H 96 09/22/18 00:44 09/22/18 00:44 09/22/18 00:44 09/22/18 00:44 09/22/18 00:44 - Laboratory Result Diagrams: 09/22/18 03:13 09/22/18 03:13 Laboratory results interpreted by me: 09/22/18 03:13 MCV 100 H MCH 34.3 H Seg Neutrophils % 85.5 H Lymphocytes % 7.7 L Absolute Neutrophils 8.9 H Discharge - Discharge Clinical Impression: Gastritis Qualifiers: Gastritis type: unspecified gastritis Chronicity: acute Gastritis bleeding: without bleeding Qualified Code(s): K29.00 - Acute gastritis without bleeding Condition: Good Disposition: HOME, SELF-CARE Instructions: Abdominal Pain ([facility]), Gastritis ([facility]) Prescriptions: RX: Lansoprazole [Prevacid 24Hr] 15 mg PO DAILY 30 Days capsule. Ondansetron [Zofran Odt 4 mg Tablet] 1 - 2 tab PO Q4H PRN #15 tab.rapdis PRN Reason: For Nausea/Vomiting Forms: Return to Work
== END 2018-09-22 05:57 | disposition home or self-care (01) ==
LOC: ER 00:22
DX: K29.00 Acute gastritis without bleeding (principal); R10.10 Upper abdominal pain, unspecified; R11.2 Nausea with vomiting, unspecified; F12.10 Cannabis abuse, uncomplicated
CPT/HCPCS: 36415; 85025; 99284

== ENCOUNTER 2018-09-23 00:49 | Inpatient (IN) | payer SELFPAY ==
[2018-09-23] MEDS ORDERED: LIDOCAINE 2% VISCOUS SOLN 20 ML UDCUP PO ONE ×2 (01:16→15:00)
[2018-09-23] MEDS ORDERED: MAG HYDROX/AL HYDROX/SIMETH SUSP 30 ML UDCUP PO ONE ×2 (01:16→15:00)
[2018-09-23] MEDS ORDERED: METOCLOPRAMIDE HCL ORAL SOLN 10 MG/10 ML UDCUP PO ONE ×2 (01:16→15:00)
[2018-09-23] MEDS ORDERED: MORPHINE SULFATE 10 MG/ML INJ IM ONE (01:17)
--- NOTE | 2018-09-23 01:20 | ER Document Report ---
ED Medical Screen (RME) - General Stated Complaint: ABDOMINAL PAIN Time Seen by Provider: 09/23/18 01:14 Notes: Patient is a 27-year-old male who presents the emergency department with a chief complaint of mid upper abdominal pain. He was seen here in the emergency de partment yesterday with the same issues and he was sent home with Zofran and Prevacid. He states that the medications are not working and he continues to have pain. He does admit to having melena stools. Exam: Tender mid upper abdomen. I have greeted and performed a rapid initial assessment of this patient. A comprehensive ED assessment and evaluation of the patient, analysis of test results and completion of medical decision making process will be conducted by an additional ED providers. TRAVEL OUTSIDE OF THE [place] IN LAST 30 DAYS: No - Related Data Allergies/Adverse Reactions: No Known Allergies Allergy (Verified 09/15/18 19:43) Past Medical History Renal/ Medical History: Denies: Hx Peritoneal Dialysis - Immunizations Hx Diphtheria, Pertussis, Tetanus Vaccination: No History of Influenza Vaccine for 01/2017 - 06/2017 Season: No Physical Exam - Vital signs Vitals: Temp Pulse BP Pulse Ox 97.8 F 126 H 154/99 H 97 09/23/18 01:08 09/23/18 01:08 09/23/18 01:08 09/23/18 01:08 Course - Vital Signs Vital signs: Temp Pulse Resp BP Pulse Ox 97.8 F 126 H 154/99 H 97 09/23/18 01:08 09/23/18 01:08 09/23/18 01:08 09/23/18 01:08
[2018-09-23] MEDS ORDERED: NORMAL SALINE 1000 ML 1,000 ML IV ONE (03:55)
--- NOTE | 2018-09-23 05:06 | ER Document Report ---
Doctor's Note Notes: 09/23/18 05:05 Performed a quick triage evaluation the patient. Patient was seen in triage by nurse practitioner. Patient is come back to the room. I did evaluate the patient and complains of some upper abdominal pain. He did improve some of the GI cocktail. He was actually seen here approximately 10 hours ago with the same complaints. Labs at that time were non-concerning however he was tachycardic and returns tachycardic. On exam his pain in the right upper quadrant he says this is where it hurts whenever he eats. He has not had an ultrasound of his gallbladder or any work-up of the gallbladder thus far. I did do a stool guaiac. On rectal exam stool was brown. Guaiac testing is negative. I have ordered CBC, CMP, lipase, and ultrasound of his gallbladder. Patient is agreeable to plan. Dictation of this chart was performed using voice recognition software; therefore, there may be some unintended grammatical errors. 09/23/18 05:06
[2018-09-23 05:49] LABS: ABSOLUTE LYMPHOCYTES (AUTO) 1.4 10^3/uL (0.5-4.7); ABSOLUTE MONOCYTES (AUTO) 0.9 10^3/uL (0.1-1.4); ABSOLUTE NEUT (AUTO) 5.3 10^3/uL (1.7-8.2); BASOPHILS % (AUTO) 0.6 % (0-2); HEMOGLOBIN 15.6 g/dL (13.5-17.0); LYMPHOCYTES % (AUTO) 18.5 % (13-45); MEAN CORPUSCULAR HEMOGLOBIN 34.2 pg (27.0-33.4); MEAN CORPUSCULAR HGB CONC 34.7 g/dL (32.0-36.0); MEAN CORPUSCULAR VOLUME 98 fl (80-97); MONOCYTES % (AUTO) 11.3 % (3-13); PLATELET COUNT 239 10^3/uL (150-450); RED BLOOD COUNT 4.57 10^6/uL (4.35-5.55); RED CELL DISTRIBUTION WIDTH 13.5 % (11.5-14.0); SEGMENTED NEUTROPHILS % (AUTO) 69.6 % (42-78); TOTAL CELLS COUNTED % (AUTO) 100 %; WHITE BLOOD COUNT 7.6 10^3/uL (4.0-10.5)
--- NOTE | 2018-09-23 05:56 | RADIOLOGY REPORT (SQ) ---
EXAM DESCRIPTION: US ABDOMEN DOPPLER LIMITED COMPLETED DATE/TME: 09/23/2018 05:04 CLINICAL HISTORY: 27 years, Male, RUQ abdominal pain COMPARISON: 09/25/2018 TECHNIQUE: Grayscale and color images of the abdomen LIMITATIONS: None. FINDINGS: The visualized portions of the pancreas and aorta appear unremarkable. The liver is normal in size, shape, and echotexture. The liver measures 15.0 cm. The main portal vein demonstrates hepatopedal flow. The gallbladder appears unremarkable. No evidence of cholelithiasis or wall thickening. No sonographic Rosas sign was elicited. The common bile duct is normal in caliber measuring up to 3 mm in diameter. The right kidney measures 10.8 x 4.3 x 5.0 cm. No hydronephrosis. IMPRESSION: Unremarkable abdominal ultrasound copyright 2010 [employer]- All Rights Reserved
[2018-09-23 06:11] LABS: ALANINE AMINOTRANSFERASE 97 U/L (21-72); ALBUMIN 5.1 g/dL (3.5-5.0); ALKALINE PHOSPHATASE 66 U/L (38-126); ANION GAP 13 (5-19); ASPARTATE AMINO TRANSFERASE 366 U/L (17-59); BILIRUBIN,DIRECT 0.3 mg/dL (0.0-0.4); BILIRUBIN,TOTAL 1.3 mg/dL (0.2-1.3); BLOOD UREA NITROGEN 21 mg/dL (7-20); CALCIUM 10.5 mg/dL (8.4-10.2); CARBON DIOXIDE 26 mmol/L (22-30); CHLORIDE 98 mmol/L (98-107); GLUCOSE 104 mg/dL (75-110); LIPASE 58.8 U/L (23-300); POTASSIUM 4.3 mmol/L (3.6-5.0); SODIUM 137.4 mmol/L (137-145); TOTAL PROTEIN 8.2 g/dL (6.3-8.2)
[2018-09-23 07:04] LABS: TROPONIN I < 0.012 ng/mL
[2018-09-23] MEDS ORDERED: ONDANSETRON HCL INJ/PF 4 MG/2 ML SDV IV PRN (07:47)
[2018-09-23] MEDS ORDERED: MAG HYDROX/AL HYDROX/SIMETH SUSP 30 ML UDCUP PO PRN (07:47)
[2018-09-23] MEDS ORDERED: ACETAMINOPHEN 325 MG TABLET PO PRN (07:47)
[2018-09-23] MEDS ORDERED: PROMETHAZINE HCL INJ 25 MG/1 ML VIAL IV PRN (07:47)
[2018-09-23] MEDS ORDERED: MAGNESIUM HYDROXIDE SUSP 30 ML UDCUP PO PRN (07:47)
--- NOTE | 2018-09-23 07:57 | ER Document Report ---
Entered by KAREN LAGUERRE SCRIBE 09/23/18 0742 Acting as scribe for:CARMELA JONES DO ED General - General Chief Complaint: Abdominal Pain Stated Complaint: ABDOMINAL PAIN Time Seen by Provider: 09/23/18 01:14 Mode of Arrival: Ambulatory Information source: Patient Notes: Patient is a 27 year old male presenting to the emergency department complaining of abdominal pain and vomiting onset 1 week ago. Patient states the pain is located across is upper abdomen that is exacerbated with eating warm and spicy foods. Patient presented to this ED yesterday and 09/15/18 complaining of similar symptoms. Patient was diagnosed with gastritis and cannabinoid hyperemesis sy ndrome and discharged home. Patient states he was prescribed Zofran and Prevacid and reports no relief with these medications. Patient also complains of black stools since onset of abdominal pain on 09/15/18 and reports taking Pepto Bismol. He denies any fevers, diarrhea or hematemesis. Dr. Mendieta performed a rectal exam and stool guaiac in triage. Guaiac testing was negative. See provider's note for further details. TRAVEL OUTSIDE OF THE [place] IN LAST 30 DAYS: No - Related Data Allergies/Adverse Reactions: No Known Allergies Allergy (Verified 09/15/18 19:43) Past Medical History - General Information source: Patient - Social History Smoking Status: Current Some Day Smoker Cigarette use (# per day): Yes Chew tobacco use (# tins/day): No Smoking Education Provided: No Frequency of alcohol use: Rare Drug Abuse: Marijuana Family History: Reviewed & Not Pertinent Patient has suicidal ideation: No Patient has homicidal ideation: No Pulmonary Medical History: Reports: Hx Asthma - Immunizations Hx Diphtheria, Pertussis, Tetanus Vaccination: No Review of Systems - Review of Systems Constitutional: No symptoms reported EENT: No symptoms reported Cardiovascular: No symptoms reported Respiratory: No symptoms reported Gastrointestinal: See HPI, Abdominal pain, Vomiting, Black stools Genitourinary: No symptoms reported Male Genitourinary: No symptoms reported Musculoskeletal: No symptoms reported Skin: No symptoms reported Hematologic/Lymphatic: No symptoms reported Neurological/Psychological: No symptoms reported -: Yes All other systems reviewed and negative Physical Exam - Vital signs Vitals: Temp Pulse BP Pulse Ox 97.8 F 126 H 154/99 H 97 09/23/18 01:08 09/23/18 01:08 09/23/18 01:08 09/23/18 01:08 - Notes Notes: GENERAL: Initially sleeping. Alert, interacts well. No acute distress. HEAD: Normocephalic, atraumatic. EYES: Pupils equal, round, and reactive to light. Extraocular movements intact. ENT: Oral mucosa moist, tongue midline. NECK: Full range of motion. Supple. Trachea midline. LUNGS: Clear to auscultation bilaterally, no wheezes, rales, or rhonchi. No respiratory distress. HEART: Regular rate and rhythm, no tachycardia on my exam. No murmurs, gallops, or rubs. ABDOMEN: Soft, mild LUQ tenderness to palpation, moderate epigastric tenderness to palpation, no right upper quadrant tenderness to palpation. Non-distended. Bowel sounds present in all 4 quadrants. No guarding, rigidity, or rebound. EXTREMITIES: Moves all 4 extremities spontaneously. No edema, radial and dorsalis pedis pulses 2/4 bilaterally. No cyanosis. NEUROLOGICAL: Alert and oriented x3. Normal speech. PSYCH: Normal affect, normal mood. SKIN: Warm, dry, normal turgor. No rashes or lesions noted. Course - Re-evaluation Re-evalutation: 09/23/18 07:54 CBC unremarkable, CMP shows new onset renal failure with a BUN of 21 and creatinine 1.62, AST elevated 366, ALT elevated at 97, alkaline phosphatase normal at 66, right upper quadrant ultrasound was ordered but is unremarkable, lipase normal, patient has a CK which is quite elevated at 11,878 as well as a CK-MB elevated at 28 but a normal troponin. Patient has not provided a urine sample yet, IV fluids have been started, patient appears to be in rhabdomyolysis likely related to the constant movement that he has been seen engaging in throughout his last 2 visits to the emergency department. Patient states that when he is in pain it is only relieved by jogging in place. Patient was discussed with Laura Tillman the nurse practitioner who agreed to admit the patient to her service. Patient is not having any pain at this time. Patient does not have an acute abdomen. - Vital Signs Vital signs: Temp Pulse Resp BP Pulse Ox 97.8 F 60 14 154/99 H 100 09/23/18 01:08 09/23/18 06:19 09/23/18 06:09/23/18 01:08 09/23/18 06:19 - Laboratory Result Diagrams: 09/23/18 05:35 09/23/18 05:35 Laboratory results interpreted by me: 09/23/18 09/23/18 09/23/18 05:35 05:35 05:35 MCV 98 H MCH 34.2 H BUN 21 H Creatinine 1.62 H Est GFR (Non-Af Amer) 52 L Calcium 10.5 H AST 366 H ALT 97 H Creatine Kinase 97654 H CK-MB (CK-2) Albumin 5.1 H 09/23/18 05:35 MCV MCH BUN Creatinine Est GFR (Non-Af Amer) Calcium AST ALT Creatine Kinase CK-MB (CK-2) 28.00 H Albumin Discharge - Discharge Clinical Impression: Rhabdomyolysis Qualifiers: Rhabdomyolysis type: non-traumatic Qualified Code(s): M62.82 - Rhabdomyolysis Condition: Stable Disposition: ADMITTED INPATIENT Admitting Provider: Cinda (Hospitalist) Unit Admitted: Medical Floor I personally performed the services described in the documentation, reviewed and edited the documentation which was dictated to the scribe in my presence, and it accurately records my words and actions.
[2018-09-23] MEDS: NORMAL SALINE 1000 ML 1,000 ML IV PRN ×2 (09:16→17:38)
[2018-09-23] MEDS: DOCUSATE SODIUM 100 MG CAPSULE PO SCH (09:16)
[2018-09-23] MEDS ORDERED: FAMOTIDINE 20 MG TABLET PO SCH (10:00)
[2018-09-23] MEDS ORDERED: DEXTROSE 40% GEL 15 GM TUBE PO PRN ×2 (14:18)
[2018-09-23] MEDS ORDERED: GLUCAGON,HUMAN RECOMB 1 MG INJ SUBCUT PRN (14:18)
[2018-09-23] MEDS ORDERED: DEXTROSE 50%-WATER 25 GM/50 ML DISP.SYRIN IV PRN ×2 (14:18)
[2018-09-23 14:42] LABS: URINE AMPHETAMINES SCREEN NEGATIVE; URINE BARBITURATES SCREEN NEGATIVE; URINE BENZODIAZEPINES SCREEN NEGATIVE; URINE COCAINE SCREEN NEGATIVE; URINE METHADONE SCREEN NEGATIVE; URINE PHENCYCLIDINE SCREEN NEGATIVE
[2018-09-23 14:47] LABS: APPEARANCE,URINE SLIGHTLY-CLOUDY; BILIRUBIN,URINE NEGATIVE (NEGATIVE); COLOR,URINE YELLOW; GLUCOSE, URINE NEGATIVE (NEGATIVE); KETONES,URINE TRACE mg/dL (NEGATIVE); LEUKOCYTE ESTERASE,URINE MODERATE (NEGATIVE); NITRITE,URINE NEGATIVE (NEGATIVE); PROTEIN,URINE 30 mg/dL (NEGATIVE); URINE SPECIFIC GRAVITY 1.025; UROBILINOGEN,URINE NEGATIVE mg/dL (<2.0)
[2018-09-23 14:48] LABS: URINE MARIJUANA (THC) SCREEN UNCONFIRMED POSITIVE
[2018-09-23] MEDS: HALOPERIDOL LACTATE INJ 5 MG/1 ML VIAL IV PRN (14:52)
[2018-09-23] MEDS: HEPARIN SOD (PORCINE) 5,000 UNIT/ML 1 ML SYRINGE SUBCUT SCH ×2 (14:52→21:37)
--- NOTE | 2018-09-23 16:19 | PDOC H&P ---
History of Present Illness Admission Date/PCP: 09/23/18 07:59 Patient complains of: epigastric pain History of Present Illness: SHARRI SLAUGHTER is a 27 year old male with a past medical history significant for marijuana use, tobacco dependence, and multiple recent ER visits for right upper quadrant and epigastric abdominal discomfort diagnosed with cannabis hy peremesis syndrome. He presented to the emergency department again today with complaint of upper abd ominal discomfort and nausea unrelieved by prescribed Prevacid and Zofran. He reports the only thing that relieves his pain is to jog in place. He was noted to be jogging during the ED triage assessment. Evaluation by the emergency department providers have revealed tachycardia (HR 126), hypertension (154/99), normal CBC, chemistry revealing acute kidney injury (creatinine 1.62, BUN 21), and rhabdomyolysis (CK of 11,878). Has a elevated CK-MB at 28 but a normal troponin. Urinalysis is positive for protein and ketones. UDS positive for opiates (morphine provided by the ED provider) and marijuana. He is referred to the hospitalist service for admission and management of the above-stated complaints. Past Medical History Cardiac Medical History: Reports: None Pulmonary Medical History: Reports: Asthma EENT Medical History: Reports: None Neurological Medical History: Reports: None Endocrine Medical History: Reports: None Malignancy Medical History: Reports: None GI Medical History: Reports: None Musculoskeltal Medical History: Reports: None Skin Medical History: Reports: None Psychiatric Medical History: Reports: Substance Abuse Traumatic Medical History: Reports: None Hematology: Reports: None Infectious Medical History: Reports: None Social History Information Source: Patient Smoking Status: Current Every Day Smoker Hx Recreational Drug Use: Yes Drugs: Marijuana Hx Prescription Drug Abuse: No - Advance Directive Resuscitation Status: Full Code Family History Family History: Reviewed & Not Pertinent Parental Family History Reviewed: Yes Children Family History Reviewed: No Sibling(s) Family History Reviewed.: No Medication/Allergy Home Medications: No Home Medications 09/23/18 Allergies/Adverse Reactions: No Known Allergies Allergy (Verified 09/15/18 19:43) Review of Systems Constitutional: ABSENT: chills, fever(s), headache(s), weight gain, weight loss Eyes: ABSENT: visual disturbances Ears: ABSENT: hearing changes Cardiovascular: ABSENT: chest pain, dyspnea on exertion, edema, orthropnea, palpitations Respiratory: ABSENT: cough, hemoptysis Gastrointestinal: PRESENT: as per HPI, abdominal pain, heartburn, nausea. ABSENT: constipation, diarrhea, hematemesis, hematochezia, vomiting Genitourinary: ABSENT: dysuria, hematuria Musculoskeletal: ABSENT: joint swelling Integumentary: ABSENT: rash, wounds Neurological: ABSENT: abnormal gait, abnormal speech, confusion, dizziness, focal weakness, syncope Psychiatric: ABSENT: anxiety, depression, homidical ideation, suicidal ideation Endocrine: ABSENT: cold intolerance, heat intolerance, polydipsia, polyuria Hematologic/Lymphatic: ABSENT: easy bleeding, easy bruising Physical Exam Vital Signs: Temp Pulse Resp BP Pulse Ox 98.1 F 76 17 132/65 H 99 09/23/18 12:00 09/23/18 12:00 09/23/18 12:00 09/23/18 12:00 09/23/18 12:00 Intake & Output 09/22/18 09/23/18 09/24/18 06:59 06:59 06:59 Intake Total 1000 Balance 1000 Weight 70.3 kg 71 kg General appearance: PRESENT: no acute distress, well-developed, well-nourished Head exam: PRESENT: atraumatic, normocephalic Eye exam: PRESENT: conjunctiva pink, EOMI, PERRLA. ABSENT: scleral icterus Ear exam: PRESENT: normal external ear exam Mouth exam: PRESENT: moist, tongue midline Teeth exam: PRESENT: poor dentation Neck exam: ABSENT: carotid bruit, JVD, lymphadenopathy, thyromegaly Respiratory exam: PRESENT: clear to auscultation corrie, symmetrical, unlabored. ABSENT: rales, rhonchi, wheezes Cardiovascular exam: PRESENT: RRR, +S1, +S2, tachycardia. ABSENT: diastolic murmur, rubs, systolic murmur Pulses: PRESENT: normal dorsalis pedis pul Vascular exam: PRESENT: normal capillary refill GI/Abdominal exam: PRESENT: normal bowel sounds, soft, tenderness - Epigastric. ABSENT: distended, guarding, mass, organolmegaly, rebound Rectal exam: PRESENT: deferred, heme (-) stool - Per ED provider Extremities exam: PRESENT: full ROM. ABSENT: calf tenderness, clubbing, pedal edema Musculoskeletal exam: PRESENT: ambulatory Neurological exam: PRESENT: alert, awake, oriented to person, oriented to place, oriented to time, oriented to situation, CN II-XII grossly intact. ABSENT: motor sensory deficit Psychiatric exam: PRESENT: agitated, appropriate affect. ABSENT: homicidal ideation, suicidal ideation Skin exam: PRESENT: dry, intact, warm. ABSENT: cyanosis, rash Results Laboratory Results: 09/23/18 05:35 09/23/18 05:35 09/23/18 09/23/18 09/23/18 05:35 05:35 14:00 WBC 7.6 RBC 4.57 Hgb 15.6 Hct 45.0 MCV 98 H MCH 34.2 H MCHC 34.7 RDW 13.5 Plt Count 239 Seg Neutrophils % 69.6 Lymphocytes % 18.5 Monocytes % 11.3 Eosinophils % 0.0 Basophils % 0.6 Absolute Neutrophils 5.3 Absolute Lymphocytes 1.4 Absolute Monocytes 0.9 Absolute Eosinophils 0.0 Absolute Basophils 0.0 Sodium 137.4 Potassium 4.3 Chloride 98 Carbon Dioxide 26 Anion Gap 13 BUN 21 H Creatinine 1.62 H Est GFR ( Amer) > 60 Est GFR (Non-Af Amer) 52 L Glucose 104 Calcium 10.5 H Total Bilirubin 1.3 AST 366 H ALT 97 H Alkaline Phosphatase 66 Total Protein 8.2 Albumin 5.1 H Lipase 58.8 Urine Color YELLOW Urine Appearance SLIGHTLY-CLOUDY Urine pH 6.0 Ur Specific [place] 1.025 Urine Protein 30 H Urine Glucose (UA) NEGATIVE Urine Ketones TRACE H Urine Blood NEGATIVE Urine Nitrite NEGATIVE Ur Leukocyte Esterase MODERATE H Urine WBC (Auto) 41 Urine RBC (Auto) 4 09/23/18 09/23/18 05:35 05:35 Creatine Kinase 95549 H CK-MB (CK-2) 28.00 H Troponin I < 0.012 Impressions: Abdomen Ultrasound 09/23/18 05:04 IMPRESSION: Unremarkable abdominal ultrasound copyright 2010 [employer]- All Rights Reserved Assessment and Plan - Diagnosis (1) Rhabdomyolysis Qualifiers: Rhabdomyolysis type: non-traumatic Qualified Code(s): M62.82 - Rhabdomyolysis Is this a current diagnosis for this admission?: Yes Plan: Likely secondary to the patient's compulsive jogging in place. He reports that this is the only thing that relieves his abdominal discomfort; per the ED provider and previous visit records, the patient has been utilizing this tactic for pain relief since 09/15/2018. Despite numerous attempts to educate the patient with regard to physical rest by ED provider, myself, and nursing staff, he continues to jog in place. When checked on again this afternoon, he was noted to be profusely sweating related to his physical activity in his room. When attempting to explain again the importance of rest and minimal activity at this time, the patient became agitated, stating "if you felt like this, you'd do whatever it takes. I don't care that its bad for my kidneys. Let it kill me, at least I wont hurt anymore." Patient is admitted to the medical floor. He is provided generous IVF fluids. Will provide Haldol IV for agitation and management of nausea/discomfort. Will monitor urine output. Check daily chemistries. Consider mental health consultation if compulsive physical activity continues. (2) SILVA (acute kidney injury) Is this a current diagnosis for this admission?: Yes Plan: Secondary to #1. Avoid nephrotoxic medications as able. Generous IV fluids. Daily chemistries. (3) Cannabinoid hyperemesis syndrome Is this a current diagnosis for this admission?: Yes Plan: Patient with multiple emergency department visits for nausea, vomiting, and gastritis related to heavy marijuana use. He has been educated on the importance of discontinuing marijuana use. IV fluids and antiemetics as above. Per patient and nursing, he has been eating and drinking since arrival to his room. He is noted to have a does not empty cranberry juice cups on his bedside table. It is likely that his p.o. intake is exacerbating his gastritis. Therefore, he is placed in n.p.o. other than water and ice chips for now. Will advance to clear liquids as abdominal pain improves (avoiding cranberry juice related to its acidity). (4) Marijuana use Is this a current diagnosis for this admission?: Yes Plan: Cessation strongly encouraged. - Time Time Spent with patient: 25-34 minutes Medications reviewed and adjusted accordingly: Yes Anticipated discharge: Home
[2018-09-23] MEDS ORDERED: PANTOPRAZOLE SODIUM 40 MG VIAL IV ONE (17:08)
[2018-09-23] MEDS: TRAMADOL HCL 50 MG TABLET PO PRN (21:36)
[2018-09-23] MEDS: SUCRALFATE 1 GM TABLET PO SCH (21:36)
[2018-09-24] MEDS: NORMAL SALINE 1000 ML 1,000 ML IV PRN ×3 (01:40→22:42)
[2018-09-24] MEDS: HEPARIN SOD (PORCINE) 5,000 UNIT/ML 1 ML SYRINGE SUBCUT SCH ×3 (05:04→22:49)
[2018-09-24 05:08] LABS: HEMATOCRIT 37.1 % (37.9-51.0); MEAN CORPUSCULAR HEMOGLOBIN 34.9 pg (27.0-33.4); MEAN CORPUSCULAR HGB CONC 35.1 g/dL (32.0-36.0); MEAN CORPUSCULAR VOLUME 99 fl (80-97); PLATELET COUNT 194 10^3/uL (150-450); RED BLOOD COUNT 3.73 10^6/uL (4.35-5.55); RED CELL DISTRIBUTION WIDTH 13.6 % (11.5-14.0)
[2018-09-24 05:20] LABS: ANION GAP 7 (5-19); BLOOD UREA NITROGEN 14 mg/dL (7-20); CALCIUM 9.1 mg/dL (8.4-10.2); CARBON DIOXIDE 26 mmol/L (22-30); CHLORIDE 103 mmol/L (98-107); GLUCOSE 98 mg/dL (75-110); SODIUM 135.8 mmol/L (137-145)
[2018-09-24 07:01] LABS: CREATINE KINASE 8913 U/L (55-170)
[2018-09-24] MEDS ORDERED: PANTOPRAZOLE SODIUM 40 MG VIAL IV SCH (08:00)
[2018-09-24] MEDS: SUCRALFATE 1 GM TABLET PO SCH ×4 (08:00→22:41)
[2018-09-24] MEDS: PANTOPRAZOLE SODIUM 40 MG VIAL IV SCH ×2 (10:36→22:41)
[2018-09-24] MEDS: DOCUSATE SODIUM 100 MG CAPSULE PO SCH (10:36)
--- NOTE | 2018-09-24 12:55 | PDOC PROGRESS REPORT ---
Subjective Progress Note for:: 09/24/18 Subjective:: SHARRI SLAUGHTER is a 27 year old male with a past medical history significant for marijuana use, tobacco dependence, and multiple recent ER visits for right upper quadrant and epigastric abdominal discomfort diagnosed with cannabis hyperemesis syndrome who was admitted 09/23/18 for SILVA, rhabdomyolysis, and cannabinoid hyperemesis syndrome. Patient was seen on morning rounds. He was found resting in bed comfortably on room air. He is awake, A&O x4, but minimally conversational with me. He is watching videos on his phone, does not make eye contact, and only occasionally responds to questions. He does deny abdominal discomfort and nausea. He does not voice any questions or concerns. Nursing reports that patient continued to intermittently jog overnight, walk in hallways, and has been unhooking his IVF. He is advised to leave the IV alone to prevent infection and rest as much as possible. Reason For Visit: RHABDOMYOLYSIS Physical Exam Vital Signs: Temp Pulse Resp BP Pulse Ox 97.8 F 65 16 129/80 H 100 09/24/18 11:46 09/24/18 11:46 09/24/18 11:46 09/24/18 11:46 09/24/18 11:46 Intake & Output 09/23/18 09/24/18 09/25/18 06:59 06:59 06:59 Intake Total 3640 Output Total 250 Balance 3390 Weight 70.3 kg 69.4 kg General appearance: PRESENT: no acute distress, well-developed, well-nourished. ABSENT: cooperative Head exam: PRESENT: atraumatic, normocephalic Eye exam: PRESENT: conjunctiva pink, EOMI, PERRLA. ABSENT: scleral icterus Ear exam: PRESENT: normal external ear exam Mouth exam: PRESENT: moist, tongue midline Neck exam: ABSENT: carotid bruit, JVD, lymphadenopathy, thyromegaly Respiratory exam: PRESENT: clear to auscultation corrie. ABSENT: rales, rhonchi, wheezes Cardiovascular exam: PRESENT: RRR. ABSENT: diastolic murmur, rubs, systolic murmur Pulses: PRESENT: normal dorsalis pedis pul Vascular exam: PRESENT: normal capillary refill GI/Abdominal exam: PRESENT: normal bowel sounds, soft. ABSENT: distended, guarding, mass, organolmegaly, rebound, tenderness Rectal exam: PRESENT: deferred Extremities exam: PRESENT: full ROM. ABSENT: calf tenderness, clubbing, pedal edema Neurological exam: PRESENT: alert, awake, oriented to person, oriented to place, oriented to time, oriented to situation, CN II-XII grossly intact. ABSENT: motor sensory deficit Psychiatric exam: PRESENT: appropriate affect, normal mood. ABSENT: homicidal ideation, suicidal ideation Skin exam: PRESENT: dry, intact, warm. ABSENT: cyanosis, rash Results Laboratory Results: 09/24/18 04:46 09/24/18 04:46 09/23/18 09/24/18 09/24/18 14:00 04:46 04:46 WBC 6.0 RBC 3.73 L Hgb 13.0 L D Hct 37.1 L MCV 99 H MCH 34.9 H MCHC 35.1 RDW 13.6 Plt Count 194 Sodium 135.8 L Potassium 4.0 Chloride 103 Carbon Dioxide 26 Anion Gap 7 BUN 14 Creatinine 0.94 Est GFR ( Amer) > 60 Est GFR (Non-Af Amer) > 60 Glucose 98 Calcium 9.1 Urine Color YELLOW Urine Appearance SLIGHTLY-CLOUDY Urine pH 6.0 Ur Specific [place] 1.025 Urine Protein 30 H Urine Glucose (UA) NEGATIVE Urine Ketones TRACE H Urine Blood NEGATIVE Urine Nitrite NEGATIVE Ur Leukocyte Esterase MODERATE H Urine WBC (Auto) 41 Urine RBC (Auto) 4 09/23/18 09/23/18 09/24/18 05:35 05:35 04:46 Creatine Kinase 96535 H 8913 H CK-MB (CK-2) 28.00 H Troponin I < 0.012 Impressions: Abdomen Ultrasound 09/23/18 05:04 IMPRESSION: Unremarkable abdominal ultrasound copyright 2011 [employer]- All Rights Reserved Assessment and Plan - Diagnosis (1) Rhabdomyolysis Qualifiers: Rhabdomyolysis type: non-traumatic Qualified Code(s): M62.82 - Rhabdomyolysis Is this a current diagnosis for this admission?: Yes Plan: Improved; CK 11.8k -> 8.9k Likely secondary to the patient's compulsive jogging in place. He reports that this is the only thing that relieves his abdominal discomfort; per the ED pr ovider and previous visit records, the patient has been utilizing this tactic for pain relief since 09/15/2018. Despite numerous attempts to educate the patient with regard to physical rest by ED provider, myself, and nursing staff, he continues to jog in place. Patient is admitted to the medical floor. He is provided generous IVF fluids. Will provide Haldol IV for agitation and management of nausea/discomfort. Will monitor urine output. Check daily chemistries. Consider mental health consultation if compulsive physical activity continues. (2) SILVA (acute kidney injury) Is this a current diagnosis for this admission?: Yes Plan: Resolved; Cr 1.62-> 0.94 Secondary to #1. Avoid nephrotoxic medications as able. Generous IV fluids. Daily chemistries. (3) Cannabinoid hyperemesis syndrome Is this a current diagnosis for this admission?: Yes Plan: Patient with multiple emergency department visits for nausea, vomiting, and gastritis related to heavy marijuana use. He has been educated on the importance of discontinuing marijuana use. Continue IV fluids. Advance to clear liquid diet. IV Haldol as needed for nausea and discomfort related to hyperemesis syndrome. Phenergan and Zofran as needed for nausea and vomiting. Scheduled Carafate. Maalox as needed. Scheduled Protonix twice daily. Tramadol as needed for pain. (4) Marijuana use Is this a current diagnosis for this admission?: Yes Plan: Cessation strongly encouraged. - Time Time Spent with patient: 15-24 minutes Medications reviewed and adjusted accordingly: Yes Anticipated discharge: Home Within: within 48 hours
[2018-09-24] MEDS: TRAMADOL HCL 50 MG TABLET PO PRN ×2 (16:20→22:41)
[2018-09-24] MEDS: HALOPERIDOL LACTATE INJ 5 MG/1 ML VIAL IV PRN (18:27)
[2018-09-24] MEDS ORDERED: PROCHLORPERAZINE MALEATE 10 MG TABLET PO PRN (22:23)
[2018-09-24] MEDS ORDERED: PROCHLORPERAZINE MALEATE 10 MG TABLET PO ONE (22:23)
[2018-09-24] MEDS ORDERED: DICYCLOMINE HCL 20 MG TABLET ONE (22:34)
[2018-09-24] MEDS ORDERED: PROCHLORPERAZINE MALEATE 10 MG TABLET ONE (22:34)
[2018-09-24] MEDS: DICYCLOMINE HCL 20 MG TABLET PO SCH (22:41)
[2018-09-24] MEDS ORDERED: HALOPERIDOL 5 MG TABLET PO PRN (22:48)
[2018-09-25] MEDS: NORMAL SALINE 1000 ML 1,000 ML IV PRN ×3 (00:50→20:00)
[2018-09-25] MEDS: HEPARIN SOD (PORCINE) 5,000 UNIT/ML 1 ML SYRINGE SUBCUT SCH ×3 (05:11→21:37)
[2018-09-25 06:03] LABS: HEMATOCRIT 36.6 % (37.9-51.0); HEMOGLOBIN 12.5 g/dL (13.5-17.0); MEAN CORPUSCULAR HEMOGLOBIN 34.3 pg (27.0-33.4); MEAN CORPUSCULAR HGB CONC 34.1 g/dL (32.0-36.0); MEAN CORPUSCULAR VOLUME 101 fl (80-97); PLATELET COUNT 155 10^3/uL (150-450); RED BLOOD COUNT 3.64 10^6/uL (4.35-5.55); RED CELL DISTRIBUTION WIDTH 13.7 % (11.5-14.0); WHITE BLOOD COUNT 4.3 10^3/uL (4.0-10.5)
[2018-09-25 06:35] LABS: BLOOD UREA NITROGEN 9 mg/dL (7-20); CALCIUM 8.3 mg/dL (8.4-10.2); CARBON DIOXIDE 26 mmol/L (22-30); CHLORIDE 106 mmol/L (98-107); GLUCOSE 97 mg/dL (75-110); POTASSIUM 3.7 mmol/L (3.6-5.0); SODIUM 136.1 mmol/L (137-145)
[2018-09-25 07:00] LABS: CREATINE KINASE 9153 U/L (55-170)
[2018-09-25 07:01] LABS: ANION GAP 4 (5-19)
[2018-09-25] MEDS: SUCRALFATE 1 GM TABLET PO SCH ×4 (07:29→21:37)
[2018-09-25] MEDS: DICYCLOMINE HCL 20 MG TABLET PO SCH ×4 (10:04→21:37)
[2018-09-25] MEDS: DOCUSATE SODIUM 100 MG CAPSULE PO SCH (10:04)
[2018-09-25] MEDS: PANTOPRAZOLE SODIUM 40 MG VIAL IV SCH ×2 (10:04→21:36)
[2018-09-25] MEDS: DIAZEPAM 2 MG TABLET PO PRN (11:06)
--- NOTE | 2018-09-25 12:57 | PDOC PROGRESS REPORT ---
Subjective Progress Note for:: 09/25/18 Subjective:: SHARRI SLAUGHTER is a 27 year old male with a past medical history significant for marijuana use, tobacco dependence, and multiple recent ER visits for right upper quadrant and epigastric abdominal discomfort diagnosed with cannabis hyperemesis syndrome who was admitted 09/23/18 for SILVA, rhabdomyolysis, and cannabinoid hyperemesis syndrome. Patient was seen on morning rounds. Upon entering the room, he was found with IVF disconnected, in bed exercising (in plank position doing leg lifts). Patient stated that this was to relieve right knee discomfort, "it feels like its going to pop." He was advised to stop exercising; again explained that physical activity is causing muscle break down leading to kidney injury. Patient agitatedly responded, "I am resting! I'm not running in place any more, am I?" He denies chest pain, dyspnea, abdominal discomfort, nausea and vomiting. He does not voice questions or concerns. Numerous overnight events reported; see nursing notes. Reason For Visit: RHABDOMYOLYSIS Physical Exam Vital Signs: Temp Pulse Resp BP Pulse Ox 98.5 F 63 13 150/90 H 100 09/25/18 07:36 09/25/18 07:36 09/25/18 07:36 09/25/18 07:36 09/25/18 07:36 Intake & Output 09/24/18 09/25/18 09/26/18 06:59 06:59 06:59 Intake Total 4640 3750 Output Total 250 750 Balance 4390 3000 Weight 69.4 kg 69.4 kg General appearance: PRESENT: no acute distress, well-developed, well-nourished. ABSENT: cooperative Head exam: PRESENT: atraumatic, normocephalic Eye exam: PRESENT: conjunctiva pink, EOMI, PERRLA. ABSENT: scleral icterus Ear exam: PRESENT: normal external ear exam Mouth exam: PRESENT: moist, tongue midline Neck exam: ABSENT: carotid bruit, JVD, lymphadenopathy, thyromegaly Respiratory exam: PRESENT: clear to auscultation corrie. ABSENT: rales, rhonchi, wheezes Cardiovascular exam: PRESENT: RRR. ABSENT: diastolic murmur, rubs, systolic murmur Pulses: PRESENT: normal dorsalis pedis pul Vascular exam: PRESENT: normal capillary refill GI/Abdominal exam: PRESENT: normal bowel sounds, soft. ABSENT: distended, guarding, mass, organolmegaly, rebound, tenderness Rectal exam: PRESENT: deferred Extremities exam: PRESENT: full ROM. ABSENT: calf tenderness, clubbing, pedal edema Neurological exam: PRESENT: alert, awake, oriented to person, oriented to place, oriented to time, oriented to situation, CN II-XII grossly intact. ABSENT: motor sensory deficit Psychiatric exam: PRESENT: agitated. ABSENT: homicidal ideation, suicidal ideation Focused psych exam: PRESENT: restlessness Skin exam: PRESENT: dry, intact, warm. ABSENT: cyanosis, rash Results Laboratory Results: 09/25/18 05:23 09/25/18 05:23 09/25/18 09/25/18 05:23 05:23 WBC 4.3 RBC 3.64 L Hgb 12.5 L Hct 36.6 L MCV 101 H MCH 34.3 H MCHC 34.1 RDW 13.7 Plt Count 155 Sodium 136.1 L Potassium 3.7 Chloride 106 Carbon Dioxide 26 Anion Gap 4 L BUN 9 Creatinine 0.75 Est GFR ( Amer) > 60 Est GFR (Non-Af Amer) > 60 Glucose 97 Calcium 8.3 L 09/23/18 09/23/18 09/24/18 05:35 05:35 04:46 Creatine Kinase 33901 H 8913 H CK-MB (CK-2) 28.00 H Troponin I < 0.012 09/25/18 05:23 Creatine Kinase 9153 H CK-MB (CK-2) Troponin I Impressions: Abdomen Ultrasound 09/23/18 05:04 IMPRESSION: Unremarkable abdominal ultrasound copyright 2010 [employer]- All Rights Reserved Assessment and Plan - Diagnosis (1) Rhabdomyolysis Qualifiers: Rhabdomyolysis type: non-traumatic Qualified Code(s): M62.82 - Rhabdomyolysis Is this a current diagnosis for this admission?: Yes Plan: Overall improved; CK 11.8k -> 8.9k-> 9.1k Likely secondary to the patient's compulsive exercising. He reports that this is the only thing that relieves his abdominal discomfort; per the ED provider and previous visit records, the patient has been utilizing this tactic for pain relief since 09/15/2018. Despite numerous attempts to educate the patient with regard to physical rest by ED provider, myself, and nursing staff, he continues to jog in place; now found to be in bed exercising (planks and leg lifts) Patient is admitted to the medical floor. He is provided generous IVF fluids. Will provide Haldol IV for agitation and management of nausea/discomfort. Will monitor urine output. Check daily chemistries. Have consulted mental health services for evaluation and guidance. (2) SILVA (acute kidney injury) Is this a current diagnosis for this admission?: Yes Plan: Resolved; Cr 1.62-> 0.94-> 0.75 Secondary to #1. Avoid nephrotoxic medications as able. Generous IV fluids. Daily chemistries. (3) Cannabinoid hyperemesis syndrome Is this a current diagnosis for this admission?: Yes Plan: Patient with multiple emergency department visits for nausea, vomiting, and gastritis related to heavy marijuana use. He has been educated on the importance of discontinuing marijuana use. Per nursing; questionable marijuana use overnight. Security was notified. Continue IV fluids. Clear liquid diet; advance as tolerated. IV Haldol as needed for nausea and discomfort related to hyperemesis syndrome. Phenergan and Zofran as needed for nausea and vomiting. Scheduled Carafate. Maalox as needed. Scheduled Protonix twice daily. Bentyl twice daily. Tramadol as needed for pain. (4) Marijuana use Is this a current diagnosis for this admission?: Yes Plan: Cessation strongly encouraged. Questionable use overnight; see nurse notes. Mental health services consulted. - Time Time Spent with patient: 25-34 minutes Medications reviewed and adjusted accordingly: Yes Anticipated discharge: Home Within: within 72 hours
[2018-09-25] MEDS ORDERED: ONDANSETRON HCL INJ/PF 4 MG/2 ML SDV IV PRN (13:30)
[2018-09-25] MEDS ORDERED: PROMETHAZINE HCL INJ 25 MG/1 ML VIAL IV PRN (13:30)
--- NOTE | 2018-09-25 14:28 | PSYCHOLOGICAL NOTE ---
Psych Note - Psych Note Date seen by psych provider: 09/25/18 Psych Note: Presenting Problem: Compulsive Exercise. Chart review and face to face. Patient came to ED 09/23/18 for upper abdominal pain and vomiting x 1 week. Was given a GI cocktail and had some improvement. Had been seen about 10 hours prior for similar etiology. Both times he was tachycardic. The firs time he was diagnosed with gastritis and cannabinoid hyperemesis syndrome. Second visit he was a same day admit for rhabdomyolysis, SILVA, cannabinoid hyperemesis syndrome and marijuana use. UDS is positive for opiates and cannabis. Psychiatric medications listed on MAR are Haldol 10MG PO Q8H PRN restlessness/agitation, Haldol 5MG IV Q4H PRN restlessness/agitation and Valium 2MG PO Q6H PRN anxiety/agitation. Observed attending nurses trying to get an IV without success. Patient walked the hallway and talked with this clinician. He was made aware of a study explaining Marijuana/Cannabinoid Hyperemesis Syndrome and how using marijuana may be contributing to his abdominal pain and vomiting. He said if that was the case he would try to stop because he did not want to feel that way anymore. he said he does read and would be interested in a copy of the study (which was left for patient). He said he was not eating because "it either goes down and doesn't feel good or comes up. He agreed to try to start off eating small amounts (part of a cracker, then a whole cracker) and work his way up to meals. He stated he was drinking lots of water and wanted Gatorade but the blue and fruit punch make him vomit so he needs grape. He denied any previous treatment to include medication management, other outpatient services and inpatient hospitalizations. He denied smoking in the hospital and was encouraged this is time to not use to see if his symptoms get better. Diagnosis: Rhabdo SILVA Cannabis Use Disorder, Severe Bulimia Medication recommendations made by the psychiatric medical provider, Dr. Akintayo. HERNANDEZ, includes: Continue Haldol and Ativan already listed in the MAR Impression/Plan: Recommendation to utilize Motivational Interviewing approach to address his Cannabis use advising him to stop. Sounds like he could be Bulimic which will need to be explored. Both will likely require ongoing outpatient treatment and support. provided patient with a copy of the Cannabinoid Hyperemesis Syndrome Study. Consulted with Dr. León regarding the management and care of patient.
[2018-09-25] MEDS: TRAMADOL HCL 50 MG TABLET PO PRN (15:57)
[2018-09-25] MEDS: AMLODIPINE BESYLATE 5 MG TABLET PO SCH (15:58)
[2018-09-26] MEDS: HEPARIN SOD (PORCINE) 5,000 UNIT/ML 1 ML SYRINGE SUBCUT SCH ×2 (05:14→14:06)
[2018-09-26] MEDS: NORMAL SALINE 1000 ML 1,000 ML IV PRN (05:20)
[2018-09-26 06:55] LABS: HEMATOCRIT 38.7 % (37.9-51.0); HEMOGLOBIN 13.3 g/dL (13.5-17.0); MEAN CORPUSCULAR HEMOGLOBIN 34.1 pg (27.0-33.4); MEAN CORPUSCULAR HGB CONC 34.3 g/dL (32.0-36.0); MEAN CORPUSCULAR VOLUME 99 fl (80-97); PLATELET COUNT 182 10^3/uL (150-450); RED CELL DISTRIBUTION WIDTH 13.2 % (11.5-14.0); WHITE BLOOD COUNT 5.5 10^3/uL (4.0-10.5)
[2018-09-26 07:05] LABS: ALANINE AMINOTRANSFERASE 98 U/L (21-72); ALBUMIN 3.2 g/dL (3.5-5.0); ALKALINE PHOSPHATASE 47 U/L (38-126); ANION GAP 8 (5-19); ASPARTATE AMINO TRANSFERASE 231 U/L (17-59); BILIRUBIN,DIRECT 0.2 mg/dL (0.0-0.4); BILIRUBIN,TOTAL 0.9 mg/dL (0.2-1.3); BLOOD UREA NITROGEN 5 mg/dL (7-20); CALCIUM 8.9 mg/dL (8.4-10.2); CARBON DIOXIDE 27 mmol/L (22-30); CHLORIDE 101 mmol/L (98-107); GLUCOSE 85 mg/dL (75-110); POTASSIUM 3.4 mmol/L (3.6-5.0); SODIUM 135.5 mmol/L (137-145); TOTAL PROTEIN 5.5 g/dL (6.3-8.2)
[2018-09-26] MEDS: SUCRALFATE 1 GM TABLET PO SCH ×2 (07:25→11:10)
[2018-09-26 08:37] LABS: CREATINE KINASE 7290 U/L (55-170)
[2018-09-26] MEDS: AMLODIPINE BESYLATE 5 MG TABLET PO SCH (09:44)
[2018-09-26] MEDS: DOCUSATE SODIUM 100 MG CAPSULE PO SCH (09:45)
[2018-09-26] MEDS: PANTOPRAZOLE SODIUM 40 MG VIAL IV SCH (09:45)
[2018-09-26] MEDS: DICYCLOMINE HCL 20 MG TABLET PO SCH ×2 (09:47→14:12)
[2018-09-26] MEDS: TRAMADOL HCL 50 MG TABLET PO PRN (11:12)
[2018-09-26] MEDS: DIAZEPAM 2 MG TABLET PO PRN (11:13)
[2018-09-26 14:30] VITALS: BP 147/96
--- NOTE | 2018-10-08 20:31 | PDOC DISCHARGE SUMMARY ---
General - Admit/Disc Date/PCP Admission Date/Primary Care Provider: 09/23/18 07:59 Discharge Date: 09/26/18 - Discharge Diagnosis (1) Rhabdomyolysis Is this a current diagnosis for this admission?: Yes Summary: CK 11.8k -> 8.9k-> 9.1k Likely secondary to the patient's compulsive exercising. He reports that this is the only thing that relieves his abdominal discomfort; per the ED provider and previous visit records, the patient has been utilizing this tactic for pain relief since 09/15/2018. Despite numerous attempts to educate the patient with regard to physical rest by ED provider, myself, and nursing staff, he continued to jog in place; found to be in bed exercising (planks and leg lifts). He was provided generous IVF fluids. PRN Haldol IV for agitation and management of nausea/discomfort. Mental health services were consulted for evaluation and guidance, they recom mended avoiding benzodiazepines. (2) SILVA (acute kidney injury) Is this a current diagnosis for this admission?: Yes Summary: Secondary to Rhabdomyolysis Resolved with generous IVF; Cr 1.62-> 0.94-> 0.75 (3) Cannabinoid hyperemesis syndrome Is this a current diagnosis for this admission?: Yes Summary: Patient with multiple emergency department visits for nausea, vomiting, and gastritis related to heavy marijuana use. He has been educated on the importance of discontinuing marijuana use. Originally on a clear liquid diet; was advanced to solids on the final hospital day, patient able to tolerate without difficulty. IV Haldol as needed for nausea and discomfort related to hyperemesis syndrome. Phenergan and Zofran as needed for nausea and vomiting. Scheduled Carafate. Maalox as needed. Scheduled Protonix twice daily. Bentyl twice daily. Tramadol as needed for pain. (4) Marijuana use Is this a current diagnosis for this admission?: Yes Summary: see above - Additional Information Resuscitation Status: Full Code Discharge Diet: As Tolerated, Cardiac Discharge Activity: Balance Activity w/Rest Prescriptions: Amlodipine Besylate [Norvasc 5 mg Tablet] 5 mg PO DAILY #30 tablet Ondansetron [Zofran Odt 4 mg Tablet] 1 - 2 tab PO Q4HP PRN #10 tab.rapdis PRN Reason: Prochlorperazine Maleate [Compazine 10 mg Tablet] 10 mg PO Q6HP PRN #25 tablet PRN Reason: Home Medications: Amlodipine Besylate [Norvasc 5 mg Tablet] 5 mg PO DAILY #30 tablet 09/26/18 Ondansetron [Zofran Odt 4 mg Tablet] 1 - 2 tab PO Q4HP PRN #10 tab.rapdis Prochlorperazine Maleate [Compazine 10 mg Tablet] 10 mg PO Q6HP PRN #25 tablet 09/26/18 History of Present Illness History of Present Illness: SHARRI SLAUGHTER is a 27 year old male with a past medical history significant for marijuana use, tobacco dependence, and multiple recent ER visits for right upper quadrant and epigastric abdominal discomfort diagnosed with cannabis hyperemesis syndrome. He presented to the emergency department again today with complaint of upper abdominal discomfort and nausea unrelieved by prescribed Prevacid and Zofran. He reports the only thing that relieves his pain is to jog in place. He was noted to be jogging during the ED triage assessment. Evaluation by the emergency department providers have revealed tachycardia (HR 126), hypertension (154/99), normal CBC, chemistry revealing acute kidney injury (creatinine 1.62, BUN 21), and rhabdomyolysis (CK of 11,878). Has a elevated CK-MB at 28 but a normal troponin. Urinalysis is positive for protein and ketones. UDS positive for opiates (morphine provided by the ED provider) and marijuana. He is referred to the hospitalist service for admission and management of the above-stated complaints. Hospital Course Hospital Course: detailed plan listed above. Ultimately, the patient was caught smoking marijuana in his hospital room bathroom. Additionally, the patient would take daily 45 minute showers with his girlfriend, despite many requests to stop this practice. The patient was discharged on hospital day #3. Physical Exam Vital Signs: Temp Pulse Resp BP Pulse Ox 98.3 F 74 16 147/96 H 100 09/26/18 14:28 09/26/18 14:28 09/26/18 14:28 09/26/18 14:09/26/18 14:28 General appearance: PRESENT: no acute distress, well-developed, well-nourished Head exam: PRESENT: atraumatic, normocephalic Eye exam: PRESENT: conjunctiva pink, EOMI, PERRLA. ABSENT: scleral icterus Ear exam: PRESENT: normal external ear exam Mouth exam: PRESENT: moist, tongue midline Neck exam: ABSENT: carotid bruit, JVD, lymphadenopathy, thyromegaly Respiratory exam: PRESENT: clear to auscultation corrie. ABSENT: rales, rhonchi, wheezes Cardiovascular exam: PRESENT: RRR. ABSENT: diastolic murmur, rubs, systolic murmur Pulses: PRESENT: normal radial pulses, normal dorsalis pedis pul Vascular exam: PRESENT: normal capillary refill GI/Abdominal exam: PRESENT: normal bowel sounds, soft. ABSENT: distended, guarding, mass, organolmegaly, rebound, tenderness Rectal exam: PRESENT: deferred Extremities exam: PRESENT: full ROM. ABSENT: calf tenderness, clubbing, pedal edema Neurological exam: PRESENT: alert, awake, oriented to person, oriented to place, oriented to time, oriented to situation. ABSENT: motor sensory deficit Psychiatric exam: PRESENT: appropriate affect, normal mood. ABSENT: suicidal ideation Skin exam: PRESENT: dry, intact, warm. ABSENT: cyanosis, rash Results Laboratory Results: 09/26/18 06:00 09/26/18 06:00 09/23/18 09/23/18 09/24/18 05:35 05:35 04:46 Creatine Kinase 08058 H 8913 H CK-MB (CK-2) 28.00 H Troponin I < 0.012 09/25/18 09/26/18 05:23 06:00 Creatine Kinase 9153 H 7290 H CK-MB (CK-2) Troponin I Impressions: Abdomen Ultrasound 09/23/18 05:04 IMPRESSION: Unremarkable abdominal ultrasound copyright 2011 [employer]- All Rights Reserved Qualifiers - * PATIENT BEING DISCHARGED WITH ANY OF THE FOLLOWING DIAGNOSIS: No Acute Heart Failure - Is this a Heart Failure Patient?: No
== END 2018-09-26 15:30 | disposition home or self-care (01) | DRG 683 ==
LOC: ER 00:49 → INTOOBSV 07:59 → OBSVTOIN 07:59 → EH 07:59 → 4S 09:01
PROVIDERS: ADMIT Internal Medicine; ATTEND Internal Medicine
DX: N17.9 Acute kidney failure, unspecified (principal); M62.82 Rhabdomyolysis; F17.210 Nicotine dependence, cigarettes, uncomplicated; F12.90 Cannabis use, unspecified, uncomplicated; K29.60 Other gastritis without bleeding
CPT/HCPCS: 36415; 76705; 80048; 80053; 80307; 81001; 82550; 82553; 83690; 84484; 85025; 85027; 93976; 96372; 99285; J1630; J2270; J3490; J7030; S0164; S0183

== ENCOUNTER 2019-07-17 22:42 | Emergency (ER) | payer SELFPAY ==
[2019-07-17 23:11] VITALS: BP 135/98
[2019-07-18] MEDS ORDERED: NORMAL SALINE 1000 ML 1,000 ML IV ONE (01:02)
[2019-07-18] MEDS ORDERED: ONDANSETRON HCL INJ/PF 4 MG/2 ML SDV IV ONE (01:03)
[2019-07-18] MEDS ORDERED: MORPHINE SULFATE 10 MG/ML INJ IV ONE (01:03)
[2019-07-18 01:10] LABS: ABSOLUTE BASOPHILS # (AUTO) 0.1 10^3/uL (0.0-0.2); ABSOLUTE LYMPHOCYTES (AUTO) 1.3 10^3/uL (0.5-4.7); ABSOLUTE MONOCYTES (AUTO) 0.5 10^3/uL (0.1-1.4); ABSOLUTE NEUT (AUTO) 13.3 10^3/uL (1.7-8.2); BASOPHILS % (AUTO) 0.8 % (0-2); EOSINOPHILS % (AUTO) 0.1 % (0-6); HEMATOCRIT 45.4 % (37.9-51.0); HEMOGLOBIN 15.8 g/dL (13.5-17.0); LYMPHOCYTES % (AUTO) 8.4 % (13-45); MEAN CORPUSCULAR HEMOGLOBIN 34.3 pg (27.0-33.4); MEAN CORPUSCULAR HGB CONC 34.9 g/dL (32.0-36.0); MEAN CORPUSCULAR VOLUME 98 fl (80-97); MONOCYTES % (AUTO) 3.2 % (3-13); PLATELET COUNT 248 10^3/uL (150-450); RED BLOOD COUNT 4.62 10^6/uL (4.35-5.55); RED CELL DISTRIBUTION WIDTH 14.7 % (11.5-14.0); SEGMENTED NEUTROPHILS % (AUTO) 87.5 % (42-78); TOTAL CELLS COUNTED % (AUTO) 100 %; WHITE BLOOD COUNT 15.2 10^3/uL (4.0-10.5)
[2019-07-18] MEDS ORDERED: RINGERS SOLUTION,LACTATED 1,000 ML IV ONE (01:58)
[2019-07-18] MEDS ORDERED: CAPSAICIN HP 0.075% CREAM 60 GM TP ONE (02:02)
[2019-07-18 02:05] LABS: ALBUMIN 5.5 g/dL (3.5-5.0); ALCOHOL 12 mg/dL (NONE DETECTED); ALKALINE PHOSPHATASE 105 U/L (38-126); ANION GAP 14 (5-19); ASPARTATE AMINO TRANSFERASE 45 U/L (17-59); BILIRUBIN,DIRECT 0.1 mg/dL (0.0-0.4); BILIRUBIN,TOTAL 1.1 mg/dL (0.2-1.3); BLOOD UREA NITROGEN 12 mg/dL (7-20); CALCIUM 10.5 mg/dL (8.4-10.2); CARBON DIOXIDE 24 mmol/L (22-30); CHLORIDE 103 mmol/L (98-107); GLUCOSE 74 mg/dL (75-110); POTASSIUM 4.9 mmol/L (3.6-5.0); TOTAL PROTEIN 9.3 g/dL (6.3-8.2)
--- NOTE | 2019-07-18 02:09 | ER Document Report ---
ED General - General Chief Complaint: Abdominal Pain Stated Complaint: LOWER ABDOMINAL PAIN Time Seen by Provider: 07/18/19 00:09 TRAVEL OUTSIDE OF THE [place] IN LAST 30 DAYS: No - HPI Notes: 28-year-old male history of alcohol abuse, marijuana abuse, cannabinoid hyperemesis syndrome presents with approximately 8 hours of upper midline abdominal pain without radiation that is been constant associated with numerous episodes of nonbloody nonbilious emesis. Patient says symptoms like the last time he came to ED for abdominal pain, which chart review shows was for cannabinoid hyperemesis syndrome. Patient was on alcohol and marijuana binge yesterday and today. Patient denies other drug use, trauma, chest pain, dizziness/syncope, fever, prior abdominal surgery, melena/bright red blood per rectum, immune compromise, flank pain, urinary symptoms, genital symptoms, cough/cold symptoms, myalgia, sick contacts, recent travel - Related Data Allergies/Adverse Reactions: No Known Allergies Allergy (Verified 09/15/18 19:43) Past Medical History - General Information source: Patient - Social History Smoking Status: Current Every Day Smoker Frequency of alcohol use: Social Drug Abuse: Marijuana Family History: Reviewed & Not Pertinent Patient has suicidal ideation: No Patient has homicidal ideation: No Pulmonary Medical History: Reports: Hx Asthma Renal/ Medical History: Denies: Hx Peritoneal Dialysis - Immunizations Hx Diphtheria, Pertussis, Tetanus Vaccination: No Review of Systems - Review of Systems Notes: REVIEW OF SYSTEMS: CONSTITUTIONAL : Denies fever, chills, or sweats. EENT: Denies recent cold/sinus symptoms, denies throat pain CARDIOVASCULAR: Denies chest pain, LAZARO RESPIRATORY: Denies cough, denies shortness of breath. GASTROINTESTINAL: +abdominal pain, +nausea/vomiting. GENITOURINARY: Denies difficulty urinating, painful urination. MUSCULOSKELETAL: Denies neck pain, back pain. SKIN: Denies rash or skin lesions. HEMATOLOGIC : Denies easy bruising or bleeding. LYMPHATIC: Denies swollen, enlarged glands. NEUROLOGICAL: Denies headache, denies change in gait. PSYCHIATRIC: Denies anxiety or stress or depression. Physical Exam - Vital signs Vitals: Temp Pulse Resp BP Pulse Ox 98.2 F 115 H 20 135/98 H 98 07/17/19 23:09 07/17/19 23:09 07/17/19 23:09 07/17/19 23:09 07/17/19 23:09 - Notes Notes: PHYSICAL EXAMINATION: GENERAL: Well-appearing, disheveled, appearing older than stated age, in no acute distress. HEAD: Atraumatic, normocephalic. EYES: Pupils equal round and appropriate constriction, sclera anicteric, conjunctiva are normal. ENT: nares patent, dry mucous membranes. NECK: Normal range of motion, supple without lymphadenopathy LUNGS: Breath sounds clear to auscultation bilaterally and equal. No wheezes rales or rhonchi. HEART: Tachycardic with regular rhythm without murmurs, rubs, or gallops ABDOMEN: Soft, nontender, no guarding, no rebound, no masses, no CVAT EXTREMITIES: Normal range of motion, no pitting or edema. No cyanosis. NEUROLOGICAL: Awake, alert, conversing appropriately, moves all extremities spontaneously. PSYCH: euphoric mood, normal affect. SKIN: Warm, Dry, normal turgor, no rashes or lesions noted. Course - Re-evaluation Re-evalutation: 07/18/19 02:09 Patient tachycardic otherwise normal vitals and benign exam. Patient less tachycardic than prior visit for same complaint. Most likely cannabinoid hyperemesis syndrome versus alcoholic pancreatitis versus alcohol induced gastritis. Will replete fluids, give nausea and pain control, obtain abdominal labs, trial capsaicin, and reassess. Unlikely biliary etiology given completely nontender abdominal exam and presence of more likely cause, will reevaluate need for imaging if patient does not improve with initial interventions. 07/18/19 02:55 Initially ordered lactate due to patient's tachycardia and leukocytosis, by upon reevaluation patient's tachycardia had completely resolved and and patient sym ptoms were also completely improved with patient remarking on how much better he felt, exam remains completely benign, and no other clinical signs to suggest sepsis with initial leukocytosis likely secondary to stress response from acute vomiting which is now resolved. Pulse 88 at 2:45 AM. patient tolerated p.o. cup of ice water in ED. Gave patient extensive follow-up instructions and return to ED precautions and she demonstrated understanding of. Instructed patient to stop marijuana use. CK mildly elevated below the threshold for diagnosing rhabdomyolysis, patient instructed to follow-up with primary doctor. Urinalysis canceled as patient has no urinary symptoms. Patient ready for discharge with outpatient follow-up and capsaicin. - Vital Signs Vital signs: Temp Pulse Resp BP Pulse Ox 98.2 F 115 H 20 135/98 H 98 07/17/19 23:09 07/17/19 23:09 07/17/19 23:09 07/17/19 23:09 07/17/19 23:09 07/18/19 02:55 Pulse 88 07/18/19 02:45 - Laboratory Result Diagrams: 07/18/19 00:53 07/18/19 00:53 Laboratory results interpreted by me: 07/18/19 07/18/19 07/18/19 00:53 00:53 00:53 WBC 15.2 H MCV 98 H MCH 34.3 H RDW 14.7 H Lymph % (Auto) 8.4 L Absolute Neuts (auto) 13.3 H Seg Neutrophils % 87.5 H Glucose 74 L Calcium 10.5 H Creatine Kinase 416 H Total Protein 9.3 H Albumin 5.5 H Discharge - Discharge Clinical Impression: Vomiting Qualifiers: Vomiting type: unspecified Vomiting Intractability: non-intractable Nausea presence: with nausea Qualified Code(s): R11.2 - Nausea with vomiting, unspecified Abdominal pain Qualifiers: Abdominal location: epigastric Qualified Code(s): R10.13 - Epigastric pain Condition: Good Disposition: HOME, SELF-CARE Additional Instructions: Vomiting Vomiting (or nausea without vomiting) can be caused by many other different problems. It can mean that something's wrong with the stomach, such as ulcers or inflammation or the intestinal tract, such as appendicitis. But it can also be a symptom of a problem that has nothing to do with the stomach or intestines. Vomiting is common with severe headaches, earaches, tonsillitis, and kidney infections, etc. We see it with pneumonia or heart attacks. Drugs can cause nausea and vomiting. Many abdominal problems cause vomiting; for example, gallstones, kidney stones, pancreatitis, and intestinal obstruction (blocked bowels). In most cases, curing the vomiting depends on fixing the problem that caused it. For temporary relief, we may use an anti-nausea medicine. For home use, we can prescribe suppositories, chewable pills, pills that dissolve in the mouth, or liquid anti-nausea drugs. If the vomiting seems to be caused by a problem in the stomach, acid-suppressing drugs may be prescribed as well. It's important to avoid dehydration. Sip small amounts of clear liquids (soft drinks, tea, broth, etc) . Try to take fluids frequently even if you are vomiting to prevent dehydration. Take increasing amounts of fluid and when liquids are being consumed successfully, advance to small amounts of bland food (toast, soups, mashed potatoes, etc.) until you are able to resume a regular diet. Avoid aspirin, tobacco, and alcohol. If the vomiting worsens, if the problem that's making you vomit worsens, or if there's evidence of bleeding in the stomach (such as black, tarry stool, or bloody or black vomit), you should return immediately. Also, return if abdominal pain worsens or becomes localized to one area or you develop high fever. Call your doctor if you aren't improved in 24 hours. Stop using marijuana immediately. Return to ED immediately if you are unable to keep down liquids by mouth, have dizziness or fainting, fever, return of abdomin al pain, or any other worsening or alarming symptoms. Follow-up with primary doctor within 1 week. You have several abnormal findings on your lab work including leukocytosis, high albumin, high protein, high calcium, please follow these up when you see your primary doctor. Prescriptions: Capsaicin 42.5 gm TP QPMP PRN #1 cream..g. PRN Reason:
[2019-07-18] MEDS ORDERED: CAPSAICIN 0.025% CREAM 60 GM TP ONE (03:05)
[2019-07-18] MEDS ORDERED: CAPSAICIN 0.025% CREAM 60 GM ONE (03:07)
== END 2019-07-18 03:20 | disposition home or self-care (01) ==
LOC: ER 22:42
DX: R10.13 Epigastric pain (principal); R10.30 Lower abdominal pain, unspecified; R11.2 Nausea with vomiting, unspecified; F17.200 Nicotine dependence, unspecified, uncomplicated
CPT/HCPCS: 99284; 96361; 96374; 96375; 36415; 80307; 82550; 83605; 83690; 85025; 80053; J3490; J2270; J2405; J7030; J7120